=== PATIENT | male | born 1960 | race Caucasian/White ===

== ENCOUNTER 2018-01-14 22:21 | Emergency (ER) | payer BC, SELFPAY ==
[2018-01-14 22:21] VITALS: BP 156/85; PULSE 97; RESP 18; TEMP 37.7; O2SAT 99; BMI 35.3
--- NOTE | 2018-01-14 22:52 | ED.VISSUMM ---
- ER Visit Summary Date of Service: 01/14/18 Chief Complaint: Fever History of Present Illness: The patient is a 57 M with a fever for 3 days. As high as 102. Patient was recently treated for a dental infection. He is on his second round of amoxicillin and he had a root canal 3 days ago. He denies any pain at the site of his root canal. He is not sure if his fevers are related to the procedure or not. He says he has been feeling extremely weak for 3-4 weeks. He reports fevers, chills, generalized weakness, face/sinus/bilateral ear pains, cough, chest pain, neck pains, and disorientation/confusion. I asked him to elaborate, and he said his disorientation and confusion is more like a mental fogginess. He has not forgotten who he is, where he has, or the date. He has not had a change in mental status. Symptoms are worse with exposure to light. He never had these symptoms before. He has a history of atrial fibrillation and kidney stones. Also history of cholecystectomy. Occasional drinker, beer. Non-smoker. No drugs. No history of cancer or immunocompromise. Physical Examination: Blood pressure 156/85. Borderline temp of 99.9 and borderline heart rate of 97. Respiratory rate 18 and pulse ox 99% on room air. Patient lying supine. Appears comfortable. Smiling, calm, and cooperative. Moving neck freely. Negative Kernig and Brudzinski signs. Head and neck shows normal inspection. HEENT exam unremarkable. No palpable tenderness or masses. No lymphadenopathy. Heart regular rate and rhythm. Lungs clear throughout. Abdomen soft and nontender. Normal bowel sounds. Skin appears normal in color without rash. Good range of motion through his joints. Test Results: EKG, labs, urinalysis, CT brain, and chest x-ray pending. Emergency Department Course and Treatment: Patient treated with IV fluids and Tylenol while awaiting results. I am not sure if his symptoms are directly or indirectly related to his root canal or prior dental pain or prior extreme weakness. Patient has multiple symptoms, but a fairly reassuring exam. I did consider infectious pathology, PRODUCTION SUPPORT DEVELOPER pathology, head and neck pathology, cardiac pathology, and respiratory pathologies primarily. EKG showed a sinus rhythm at a rate of 80. No sign of acute ischemia or infarction pattern. Troponin was normal. Chest x-ray showed nothing acute. CT brain showed no acute process. Patient was treated with Benadryl, Compazine, and Toradol for headache. He also received Tylenol for low-grade fevers prior to laboratory studies resulting. Labs showed a normal white count. Hemoglobin 12.7 and platelets 138. I do not have old values for comparison. Creatinine 1.31. ALT 194 and AST 165. Lipase and coags normal. Blood cultures pending. Influenza test negative. Patient presents with a fever and influenza type symptoms, headache, body ache, cough. His workup was fairly unremarkable. He is slightly anemic and thrombocytopenic, but nothing remarkable. His liver enzymes were elevated. He said he had a history of jaundice years ago and he thinks this was from infectious mononucleosis. He drinks up to 4-5 beers per day but he has no history of hepatitis, or pancreatitis. He had a cholecystectomy previously. No history of IV drug abuse, blood transfusions, or other risk factors for viral hepatitis. I am not sure if he has some type of viral or other illness that is causing his elevated liver enzymes or if he has a hepatitis that is causing his other symptoms. He is not having significant pain or other GI symptoms which would require hospitalization or inpatient workup. I did advise that we can observe him in the hospital, but he would like to follow-up as an outpatient. I recommended that he returns if he has new or worsening symptoms. I also did consider PRODUCTION SUPPORT DEVELOPER infection such as meningitis. I do not believe that he needs an LP. We discussed risks and potential benefits. The patient agreed. All questions were answered. He will be discharged with his . He will call his PCP on Tuesday to arrange outpatient follow-up. If he has new or worsening symptoms, he will return right away. Treatment Plan: As above Disposition: Discharge Impression: 1. Febrile illness 2. Hepatitis 3. Anemia 4. Thrombocytopenia This note was generated with [employer] dictation software. It may contain incorrect words, spelling, and punctuation that were not noted in review of the chart prior to signing ED Disposition - Plan for ED Patient: Chief Complaint: General Illness Referrals: Cristal Curtis [Primary Care Provider] -
--- NOTE | 2018-01-14 22:58 | ED.DCSUM_ITS ---
- ER Visit Summary Date of Service: 01/14/18 Chief Complaint: Fever History of Present Illness: The patient is a 57 M with a fever for 3 days. As high as 102. Patient was recently treated for a dental infection. He is on his second round of amoxicillin and he had a root canal 3 days ago. He denies any pain at the site of his root canal. He is not sure if his fevers are related to the procedure or not. He says he has been feeling extremely weak for 3-4 weeks. He reports fevers, chills, generalized weakness, face/sinus/ bilateral ear pains, cough, chest pain, neck pains, and disorientation/ confusion. I asked him to elaborate, and he said his disorientation and confusion is more like a mental fogginess. He has not forgotten who he is, where he has, or the date. He has not had a change in mental status. Symptoms are worse with exposure to light. He never had these symptoms before. He has a history of atrial fibrillation and kidney stones. Also history of cholecystectomy. Occasional drinker, beer. Non-smoker. No drugs. No history of cancer or immunocompromise. Physical Examination: Blood pressure 156/85. Borderline temp of 99.9 and borderline heart rate of 97. Respiratory rate 18 and pulse ox 99% on room air. Patient lying supine. Appears comfortable. Smiling, calm, and cooperative. Moving neck freely. Negative Kernig and Brudzinski signs. Head and neck shows normal inspection. HEENT exam unremarkable. No palpable tenderness or masses. No lymphadenopathy. Heart regular rate and rhythm. Lungs clear throughout. Abdomen soft and nontender. Normal bowel sounds. Skin appears normal in color without rash. Good range of motion through his joints. Test Results: EKG, labs, urinalysis, CT brain, and chest x-ray pending. Emergency Department Course and Treatment: Patient treated with IV fluids and Tylenol while awaiting results. I am not sure if his symptoms are directly or indirectly related to his root canal or prior dental pain or prior extreme weakness. Patient has multiple symptoms, but a fairly reassuring exam. I did consider infectious pathology, FIRE CAPTAIN pathology, head and neck pathology, cardiac pathology, and respiratory pathologies primarily. EKG showed a sinus rhythm at a rate of 80. No sign of acute ischemia or infarction pattern. Troponin was normal. Chest x-ray showed nothing acute. CT brain showed no acute process. Patient was treated with Benadryl, Compazine , and Toradol for headache. He also received Tylenol for low-grade fevers prior to laboratory studies resulting. Labs showed a normal white count. Hemoglobin 12.7 and platelets 138. I do not have old values for comparison. Creatinine 1.31. ALT 194 and AST 165. Lipase and coags normal. Blood cultures pending. Influenza test negative. Patient presents with a fever and influenza type symptoms, headache, body ache, cough. His workup was fairly unremarkable. He is slightly anemic and thrombocytopenic, but nothing remarkable. His liver enzymes were elevated. He said he had a history of jaundice years ago and he thinks this was from infectious mononucleosis. He drinks up to 4-5 beers per day but he has no history of hepatitis, or pancreatitis. He had a cholecystectomy previously. No history of IV drug abuse, blood transfusions, or other risk factors for viral hepatitis. I am not sure if he has some type of viral or other illness that is causing his elevated liver enzymes or if he has a hepatitis that is causing his other symptoms. He is not having significant pain or other GI symptoms which would require hospitalization or inpatient workup. I did advise that we can observe him in the hospital, but he would like to follow-up as an outpatient. I recommended that he returns if he has new or worsening symptoms. I also did consider FIRE CAPTAIN infection such as meningitis. I do not believe that he needs an LP. We discussed risks and potential benefits. The patient agreed. All questions were answered. He will be discharged with his . He will call his PCP on Tuesday to arrange outpatient follow-up. If he has new or worsening symptoms, he will return right away. Treatment Plan: As above Disposition: Discharge Impression: 1. Febrile illness 2. Hepatitis 3. Anemia 4. Thrombocytopenia This note was generated with [employer] dictation software. It may contain incorrect words, spelling, and punctuation that were not noted in review of the chart prior to signing ED Disposition - Plan for ED Patient: Chief Complaint: General Illness Referrals: Cristal Curtis [Primary Care Provider] -
[2018-01-14] MEDS: Acetaminophen 500 MG Tablet 1000 MG PO (22:59)
[2018-01-14] MEDS: 0.9% Normal Saline 1,000 ML 1000 ML IV (22:59)
[2018-01-14 23:15] LABS: ALB/GLOB Ratio 0.9 RATIO (0.9-2.4); AST(SGOT) 165 U/L (15-37); Alanine Aminotransfer ALT/SGPT 194 U/L (16-61); Albumin, Serum 3.7 g/dL (3.2-5.0); Alkaline Phosphatase 84 U/L (45-117); Anion Gap 7 (5-15); BUN 15 mg/dL (7-18); BUN/Creat Ratio 11.5 RATIO (10-20); Calcium,Total 8.6 mg/dL (8.5-10.1); Chloride 103 mmol/L (98-107); Creatinine, Serum 1.31 mg/dL (0.70-1.30); EST Glomerular Filtration Rate 60 mL/min (>60); Est Glom Filt Rate - Afr Amer 73 mL/min (>60); Estimated Creatinine Clearance 74.08 ml/min; Globulin 3.9 g/dL (2.2-4.2); Glucose 105 mg/dL (74-106); Potassium 3.7 mmol/L (3.5-5.1); Protein, Total 7.6 g/dL (6.4-8.2); Sodium Level 138 mmol/L (136-145)
[2018-01-14 23:16] LABS: Absolute Lymphocyte Count 0.55 X10^3/ul (0.83-4.51); Absolute Neutrophil Count 3.7 X10^3/uL (2.0-7.7); Basophil# 0.02 X10^3/uL; Basophil% 0.4 % (0-1); Eosinophil# 0.06 X10^3/uL; Eosinophils% 1.2 % (0-5); Hematocrit 36.6 % (40-54); Hemoglobin 12.7 g/dl (13.0-16.5); Lymphocyte # 0.55 X10^3/ul (4.0); Lymphocyte % 10.8 % (19-41); Mean Corp Hgb Conc 34.7 g/gl (32-36); Mean Corpuscular Hgb 31.3 pg (27.0-32.0); Mean Corpuscular Volume 90.1 fL (80-94); Mean Platelet Vol. 10.2 fl (6.2-12.0); Monocyte# 0.72 X10^3/uL; Monocyte% 14.1 % (0-10); Neutrophil # 3.71 X10^3/uL (2.7-7.7); Neutrophil % 72.9 % (47-70); Platelet Count 138 K/mm3 (150-450); RBC Distribution Width CV 11.9 % (11.6-14.6); RBC Distribution Width SD 38.2 fl (35.1-43.9); Red Blood Count 4.06 M/mm3 (4.6-6.2); White Blood Count 5.1 K/mm3 (4.4-11.0)
[2018-01-14 23:17] LABS: Differential Indicated SCAN CRITERIA MET; POSITIVE COUNT NO; POSITIVE DIFFERENTIAL YES; POSITIVE MORPHOLOGY NO
[2018-01-14] MEDS: DiphenhydrAMINE 50 MG/ML Syringe 25 MG IV (23:49)
[2018-01-14] MEDS: proCHLORPERazine 10 MG/2 ML Vial IV (23:50)
[2018-01-14 23:52] VITALS: BP 116/67; PULSE 74; RESP 16; O2SAT 95
[2018-01-14 23:54] LABS: Differential Comment SCANNED
[2018-01-14] MEDS: Ketorolac 30 MG/ML Syringe IV (23:56)
[2018-01-15 00:22] LABS: Lipase 164 U/L (73-393); Prothrombin Time (Protime)PT. 13.3 SECONDS (11.7-14.9)
[2018-01-15 00:23] LABS: Partial Thromboplast Time 29.2 Seconds (24.1-36.2)
--- NOTE | 2018-01-15 01:06 | ED.DEP ---
ED Disposition - Plan for ED Patient: Chief Complaint: General Illness Instructions: ED Fever Unconf Cause, Common Tests for Liver Disease Referrals: Cristal Curtis [Primary Care Provider] - As soon as possible Additional Instructions: Return right away for new or worsening issues
[2018-01-15 01:23] VITALS: RESP 17
[2018-01-15 01:26] LABS: Bacteria 0 SEEN /hpf (None Seen); Mucous, Urine 0 SEEN /hpf (<or=2+); Red Blood Cells-Urine 0 SEEN /hpf (0-5); Squamous Epithelial Cells - UA 0 SEEN /hpf (0-5); White Blood Cells 0 SEEN /hpf (0-5)
[2018-01-15 01:28] LABS: Color, Urine Yellow (Yellow); Glucose, Dipstick Normal (Normal); Ketone-Dipstick Negative (Negative); Leukocyte Esterase-Dipstick Negative /ul (Negative); Nitrite-Dipstick Negative (Negative); Occult Blood-Urine Negative /ul (Negative); Protein-Dipstick Negative (Negative); Urine Bilirubin Dipstick Negative (Negative); Urine Clarity Clear (Clear); Urine Urobilinogen 1 mg/dl (Normal)
== END 2018-01-15 01:25 | disposition home or self-care (01) ==
PROVIDERS: Emergency Provider Emergency Medicine; Family Provider Internal Medicine Infectious Disease; PCP Internal Medicine Infectious Disease
DX: R50.9 Fever, unspecified (principal); K75.9 Inflammatory liver disease, unspecified; D64.9 Anemia, unspecified; D69.6 Thrombocytopenia, unspecified; R41.9 Unspecified symptoms and signs involving cognitive functions and awareness; H92.03 Otalgia, bilateral; M54.2 Cervicalgia; R05 Cough; K21.9 Gastro-esophageal reflux disease without esophagitis; I10 Essential (primary) hypertension; I48.91 Unspecified atrial fibrillation; Z87.442 Personal history of urinary calculi; Z90.49 Acquired absence of other specified parts of digestive tract; Z79.899 Other long term (current) drug therapy
CPT/HCPCS: 70450; 71045; 80053; 81001; 83690; 84484; 85025; 85610; 85730; 87040; 87804; 93005; 96361; 96374; 96375; 99284; J7030; A4216

== ENCOUNTER → 2018-06-21 16:40 | Outpatient (CLI) | payer SELFPAY ==
[2018-06-21 18:14] LABS: Anion Gap 7 (5-15); BUN 20 mg/dL (7-18); BUN/Creat Ratio 16.7 RATIO (10-20); Calcium,Total 9.1 mg/dL (8.5-10.1); Chloride 106 mmol/L (98-107); EST Glomerular Filtration Rate 67 mL/min (>60); Est Glom Filt Rate - Afr Amer 81 mL/min (>60); Glucose 85 mg/dL (74-106); PSA,Total - Annual Screen 0.81 ng/mL (0.00-4.00); Potassium 4.1 mmol/L (3.5-5.1); Sodium Level 140 mmol/L (136-145); Thyroid Stim Hormone (TSH) 2.73 uIU/mL (0.358-3.74)
== END ==
PROVIDERS: Family Provider Family Medicine; PCP Family Medicine; Visit Provider Family Medicine
DX: Z00.00 Encounter for general adult medical examination without abnormal findings (principal); Z80.42 Family history of malignant neoplasm of prostate; F32.9 Major depressive disorder, single episode, unspecified
CPT/HCPCS: 36415; 80048; 84153; 84443; G0103

== ENCOUNTER 2018-12-03 21:28 | Emergency (ER) | payer OTHER, SELFPAY ==
[2018-12-03 21:29] VITALS: BP 161/91; PULSE 84; RESP 16; TEMP 37.1; O2SAT 99; BMI 35.6
--- NOTE | 2018-12-03 21:55 | EKG12_ITS ---
Test Reason : PALPS Blood Pressure : / mmHG Vent. Rate : 081 BPM Atrial Rate : 081 BPM P-R Int : 154 ms QRS Dur : 120 ms QT Int : 406 ms P-R-T Axes : 035 -33 030 degrees QTc Int : 471 ms Normal sinus rhythm Left axis deviation Non-specific intra-ventricular conduction delay Abnormal ECG Confirmed by CHARLIE HERMOSILLO, LAILA ([id number]), rewrite editor CHEMA PENA ([id number]) on 12/05/2018 1:53:28 PM Referred By: SILVERIO Confirmed By:LAILA GUERRA MD
[2018-12-03 22:14] LABS: Hematocrit 37.2 % (40-54); Mean Corp Hgb Conc 34.9 g/gl (32-36); Mean Corpuscular Hgb 30.8 pg (27.0-32.0); Mean Corpuscular Volume 88.2 fL (80-94); Mean Platelet Vol. 10.3 fl (6.2-12.0); Platelet Count 142 K/mm3 (150-450); RBC Distribution Width CV 12.6 % (11.6-14.6); RBC Distribution Width SD 39.9 fl (35.1-43.9); Red Blood Count 4.22 M/mm3 (4.6-6.2); White Blood Count 6.5 K/mm3 (4.4-11.0)
[2018-12-03 22:15] LABS: Scan Indicated on CBC? Y/N NO
[2018-12-03 22:43] LABS: Anion Gap 7 (5-15); BUN 16 mg/dL (7-18); BUN/Creat Ratio 13.1 RATIO (10-20); Calcium,Total 8.2 mg/dL (8.5-10.1); Chloride 107 mmol/L (98-107); Creatinine, Serum 1.22 mg/dL (0.70-1.30); EST Glomerular Filtration Rate 65 mL/min (>60); Est Glom Filt Rate - Afr Amer 79 mL/min (>60); Estimated Creatinine Clearance 76.41 ml/min; Glucose 129 mg/dL (74-106); Potassium 3.4 mmol/L (3.5-5.1); Sodium Level 139 mmol/L (136-145)
--- NOTE | 2018-12-03 23:08 | ED.VIS.GEN ---
History of Present Illness Chief Complaint: Palpitations Informant: Patient Onset: Today, Weeks Context: Sudden Onset Timing: Intermittent Quality: Palpitations fluttering the chest Location: Fluttering and discomfort chest Current Severity: - - Presently he has no symptoms Maximum Severity: Mild Worsened by: Nothing Relieved by: Nothing Associated Symptoms: Mild chest discomfort subxiphoid - Past Medical History (1) Paroxysmal atrial fibrillation Status: Acute (2) History of hypertension Status: Acute (3) History of high cholesterol Status: Acute Past Medical History - Allergies and Home Meds Allergies/Adverse Reactions: Allergies No Known Allergies Allergy (Verified 01/14/18 22:24) Primary Care Physician: Joanne Zheng MD [Primary Care Provider] - Prior records reviewed: Yes Surgical History: noncontributory Lives: Spouse/ Significant Other Smoking Status: Never smoker Drugs: None Review of Systems General: Denies: Chills, Fever, Sweats Eyes: Denies: Visual changes - bilaterally, Diplopia ENT: Denies: Bilateral ear pain, Rhinorrhea, Sore throat Cardiovascular: Reports: Palpitations, Heart racing. Denies: Chest pain Respiratory: Denies: Dyspnea, Cough, Dyspnea on exertion, Orthopnea, Paroxysmal nocturnal dyspnea Gastrointestinal: Denies: Abdominal pain, Nausea, Vomiting, Diarrhea, Melena, Hematochezia Genitourinary: Denies: Dysuria, Hematuria, Frequency Musculoskeletal: Denies: Back pain, Extremity Pain Skin: Denies: Rash, Wounds Neurological: Denies: Headache, Weakness, Numbness Endocrine: Denies: Heat intolerance, Cold intolerance Hematologic: Denies: Easy bruising, Easy bleeding Allergy: Denies: Uticaria, Swelling of the mouth Physical Exam Vital Signs/Narrative: Vital Signs Temp Pulse Resp BP Pulse Ox 12/03/18 21:29 98.8 F 84 16 161/91 H 99 Inital Vital Signs reviewed: Yes General: Well nourished, Well developed, No Acute Distress Head: Normocephalic, Atraumatic Eyes: Perrl, EOMI ENT: Moist mucous membranes, No rhinorrhea Neck: Supple, Nontender Cardiovascular: Regular rate, Regular rhythm, No murmurs, Normal S1, Normal S2 Respiratory: No distress, CTA bilaterally, Chest nontender Abdomen: Soft, Nontender, Nondistended, Normal bowel sounds Back: Nontender, Normal Inspection Extremities: Nontender, No edema Skin: Normal color, No rash Neurological: Alert, Oriented x3, Cranial nerves II-XII grossly intact, Normal Strength, Normal Sensation, Normal DTR Psychological: Normal affect, Normal Mood Diagnostic/Tx/Re-eval Laboratory Results 12/03/18 12/03/18 22:04 22:04 WBC 6.5 RBC 4.22 L Hgb 13.0 Hct 37.2 L MCV 88.2 MCH 30.8 MCHC 34.9 RDW 12.6 RDW Differential 39.9 Plt Count 142 L MPV 10.3 Sodium 139 Potassium 3.4 L Chloride 107 Carbon Dioxide 25.0 Anion Gap 7 BUN 16 Creatinine 1.22 Estim Creat Clear Calc 76.41 Est GFR (MDRD) Af Amer 79 Est GFR (MDRD) Non-Af 65 BUN/Creatinine Ratio 13.1 Glucose 129 H Calcium 8.2 L Troponin I < 0.015 - EKG Initial EKG Interpretation: Sinus Rhythm - Ventricular rate is 81. NE interval is 154 ms. QRS durations 120 ms. QT interval is 406 ms. [place] to the left. There is evidence of an intraventricular conduction delay, nonspecific. - Medical Decision Making Patient has a low chads score. Case discussed Dr. Lenz. He is to call office for follow-up. ED Disposition - Plan for ED Patient: Disposition: Home or Assisted Living Diagnosis: Paroxysmal atrial fibrillation Instructions: Atrial Fibrillation Referrals: Joanne Zheng MD [Primary Care Provider] - Russell Lizarraga MD [STAFF PHYSICIAN] - 3-5 Days Additional Instructions: Call Dr. Lizarraga's office in the morning to be seen later this week. Take an aspirin a day
[2018-12-03 23:17] VITALS: BP 147/77; PULSE 80; RESP 20; O2SAT 95
== END 2018-12-03 23:20 | disposition home or self-care (01) ==
PROVIDERS: Emergency Provider Emergency Medicine; Family Provider Family Medicine; PCP Family Medicine
DX: I48.0 Paroxysmal atrial fibrillation (principal); I10 Essential (primary) hypertension; Z79.899 Other long term (current) drug therapy
CPT/HCPCS: 80048; 84484; 85027; 93005; 99284; A4216

== ENCOUNTER → 2019-01-10 | Outpatient (CLI) | payer OTHER, SELFPAY ==
[2018-12-13 11:30] VITALS: BMI 35.2
--- NOTE | 2019-01-10 07:01 | ECHOCS_ITS ---
Reason For Study: AFIB/FLUTTER Procedure This was a 2D Doppler, Color Flow transthoracic echocardiogram. The study was technically difficult. Due to body habitus. Contrast injection was performed. Exam performed in department. Left Ventricle Normal LV size. Left ventricular systolic function is normal. The estimated ejection fraction is 55 %. No evidence for diastolic dysfunction. No regional wall motion abnormalities noted. Right Ventricle Normal RV size. Normal systolic function. Atria Normal left atrium. Normal right atrium. Mitral Valve Normal mitral valve. Tricuspid Valve Normal tricuspid valve. Mild (1+) tricuspid valve insufficiency. Pulmonary artery systolic pressure is 30 mmHg. Aortic Valve Normal aortic valve. Pulmonic Valve Normal pulmonic valve. Great Vessels Normal aortic root. The pulmonary artery is normal size. Normal inferior vena cava. Pericardium/Pleural No pericardial effusion. Medication Diluted definity 4.0ml given slow IV push to enhance endocardial definition. MMode/2D Measurements & Calculations LVIDd: 6.2 cm IVSd: 0.97 cm Ao root diam: 4.2 cm LVIDs: 3.9 cm LVPWd: 1.1 cm RVDd: 3.9 cm FS: 36.9 % LAV(MOD-bp): 57.1 ml LA A4 area: 16.3 cm2 LA dimension(2D): 4.6 cm LAV(MOD-bp) Indexed: 23.5 ml/m2 LAV(MOD-sp2): 64.4 ml LAV(MOD-sp4): 44.1 ml RA A4 area: 19.9 cm2 Time Measurements MV dec time: 0.19 sec Doppler Measurements & Calculations MV E max anupam: 72.5 cm/sec Lat Peak E' Anupam: 8.5 cm/sec Med Peak E' Anupam: 7.3 cm/sec MV A max anupam: 61.4 cm/sec E/E' lat: 8.5 E/E' med: 9.9 MV E/A: 1.2 Ao V2 max: 107.4 cm/sec LV V1 max: 92.0 cm/sec PA V2 max: 89.6 cm/sec Ao max P.6 mmHg LV V1 max P.4 mmHg TR max anupam: 255.9 cm/sec TR max P.3 mmHg Interpretation Summary Normal LV size. Left ventricular systolic function is normal. The estimated ejection fraction is 55 %. No evidence for diastolic dysfunction. Contrast injection was performed. Ordering Physician: Russell Lizarraga Referring Physician: Joanne Zheng Performed By: Alisson Corcoran, AJITCS, RVT
--- NOTE | 2019-01-10 12:23 | STRESSREP ---
Stress Test Report Exercise myocardial perfusion stress test. 58-year-old male with a history of coronary artery disease and hypertension. Stress protocol: Resting EKG demonstrates normal sinus rhythm with a rate of 75 beats minute normal intervals are noted resting blood pressures 136/82 mmHg. The patient exercised according to regular Tyrell protocol for total duration of 9 minutes maximum heart rate attained was 144 bpm which was 87% of maximum predicted heart rate and maximum workload was 10.1 metabolic equivalents. Patient maintained sinus rhythm throughout the recording. At rest there were no ST or T wave changes noted suggest ischemia. At peak exercise no ST or T wave changes were noted to suggest ischemia. The resting blood pressures 136/82 with a peak blood pressure of 158/76. Rate pressure product was 21,500. Myocardial perfusion protocol. 14.9 mCi of technetium 99m sestamibi was injected at rest. The patient exercised according to regular Tyrell protocol. At peak exercise 44.8 mCi of technetium 99m sestamibi was injected stress images were obtained stress and rest images were reconstructed and compared in the short axis vertical long horizontal long axis. Gated images were also obtained Perfusion SPECT analysis: Review of the stress images demonstrate normal uptake of tracer noted in all areas of the myocardium the resting images similar demonstrate normal uptake of tracer noted in all areas of the myocardium. No areas of reversibility are noted suggest ischemia no previous infarct is noted. Gated SPECT analysis: The gated ejection fraction is noted to be 59%. Conclusion: Exercise myocardial perfusion stress test with no evidence of ischemia at a high workload No arrhythmias noted. Preserved ejection fraction.
== END | disposition home or self-care (01) ==
LOC: CVS 07:00
PROVIDERS: Family Provider Family Medicine; PCP Family Medicine; Referring Provider Internal Medicine Cardiovascular Disease; Visit Provider Internal Medicine Cardiovascular Disease
DX: I48.0 Paroxysmal atrial fibrillation (principal)
CPT/HCPCS: 78452; 93017; 93306; A9500; Q9957; A4216; C8929

== ENCOUNTER → 2019-06-08 13:45 | Outpatient (CLI) | payer OTHER, SELFPAY ==
[2019-03-15 14:01] VITALS: BMI 36.8
[2019-06-08 16:01] LABS: Ferritin 279 ng/mL (26-388)
== END ==
PROVIDERS: PCP Family Medicine; Referring Provider Family Medicine; Visit Provider Internal Medicine Pulmonary Disease
DX: M79.606 Pain in leg, unspecified (principal)
CPT/HCPCS: 36415; 82728

== ENCOUNTER 2019-09-30 16:19 | Emergency (ER) | payer OTHER, SELFPAY ==
[2019-03-15 14:01] VITALS: BMI 36.8
[2019-09-30 16:20] VITALS: BP 161/105; PULSE 94; RESP 18; TEMP 36.6; O2SAT 99; BMI 37.8
--- NOTE | 2019-09-30 16:38 | EKG12_ITS ---
Test Reason : SOB Blood Pressure : / mmHG Vent. Rate : 079 BPM Atrial Rate : 079 BPM P-R Int : 164 ms QRS Dur : 124 ms QT Int : 386 ms P-R-T Axes : 028 -36 030 degrees QTc Int : 442 ms Normal sinus rhythm Left axis deviation Left ventricular hypertrophy with QRS widening Abnormal ECG Confirmed by CHARLIE HERMOSILLO, LAILA ([id number]), video tape editor MICHAEL CHOW ([id number]) on 10/01/2019 3:09:26 PM Referred By: KENZIE Confirmed By:LAILA GUERRA MD
[2019-09-30 16:53] VITALS: BP 143/82; PULSE 83; RESP 15; O2SAT 94; O2SAT 95
[2019-09-30 16:59] LABS: Absolute Lymphocyte Count 1.36 X10^3/uL (0.83-4.51); Absolute Neutrophil Count 4.8 X10^3/uL (2.0-7.7); Basophil# 0.06 X10^3/uL; Basophil% 0.9 % (0-1); Eosinophil# 0.21 X10^3/uL; Hematocrit 41.2 % (40-54); Hemoglobin 14.2 g/dL (13.0-16.5); Lymphocyte # 1.36 X10^3/ul (4.0); Lymphocyte % 19.5 % (19-41); Mean Corp Hgb Conc 34.5 g/dL (32-36); Mean Corpuscular Hgb 30.6 pg (27.0-32.0); Mean Corpuscular Volume 88.8 fL (80-94); Mean Platelet Vol. 9.9 fl (6.2-12.0); Monocyte# 0.43 X10^3/uL; Monocyte% 6.2 % (0-10); NRBC Flagged by Analyzer 0 % (0-5); Neutrophil # 4.77 X10^3/uL (2.7-7.7); Neutrophil % 68.5 % (47-70); Platelet Count 164 K/mm3 (150-450); RBC Distribution Width CV 11.8 % (11.6-14.6); RBC Distribution Width SD 37.4 fl (35.1-43.9); Red Blood Count 4.64 M/mm3 (4.6-6.2)
[2019-09-30] MEDS: 0.9% Normal Saline 1,000 ML 150 ML IV (17:05)
--- NOTE | 2019-09-30 17:10 | RAD_ITS ---
STUDY: X-RAY CHEST REASON FOR EXAM: Male, 58 years old. PT WITH SOB X WEEK, WORSENED TODAY, REPORTS CHILLS AND SORE THROAT. TECHNIQUE: Single AP portable view of the chest. COMPARISON: 09/14/2017. FINDINGS: The lungs are clear and expanded. There is no demonstrated pleural abnormality. Normal size heart. Normal mediastinum and anuel. Normal visualized pulmonary arteries. Normal visualized aortic arch and descending thoracic aorta. Normal visualized thoracic spine. Normal visualized ribs, clavicles, and shoulders. There is no demonstrated abnormality of the visualized soft tissue structures of the upper abdomen. RAD/Chest 1 View (Portable) IMPRESSION: Normal x-ray examination of the chest. Electronically Signed: Stephanie Maya MD at 17:36 EDT Tel , Service support ,
[2019-09-30 17:11] LABS: D-Dimer Quantitative (DVT/PE) 0.34 FEU/ug/m (0.27-0.49)
[2019-09-30 17:15] VITALS: BP 143/82; PULSE 81; RESP 14; TEMP 37.6; O2SAT 96
[2019-09-30 17:17] LABS: Anion Gap 8 (5-15); BUN 19 mg/dL (7-18); BUN/Creat Ratio 15.7 RATIO (10-20); Calcium,Total 9.5 mg/dL (8.5-10.1); Chloride 105 mmol/L (98-107); Creatinine, Serum 1.21 mg/dL (0.70-1.30); EST Glomerular Filtration Rate 66 mL/min (>60); Est Glom Filt Rate - Afr Amer 80 mL/min (>60); Estimated Creatinine Clearance 77.04 ml/min; Glucose 137 mg/dL (74-106); Potassium 3.5 mmol/L (3.5-5.1); Sodium Level 140 mmol/L (136-145)
[2019-09-30 17:42] LABS: BNP,B-Type NATRIURETIC PEPTIDE < 2.0 pg/mL (0-100)
[2019-09-30 18:15] VITALS: BP 129/76; PULSE 81; RESP 15; TEMP 36.7; O2SAT 93
[2019-09-30 18:24] LABS: Lactic Acid 1.5 mmol/L (0.4-1.9)
[2019-09-30 18:32] VITALS: O2SAT 94
--- NOTE | 2019-09-30 18:39 | ED.VISSUMM ---
- ER Visit Summary Date of Service: 09/30/19 Chief Complaint: Cough and shortness of breath History of Present Illness: The patient is a [address] Zheng and Dr. Lizarraga. He reports that he has a cough that began approximately 1 week ago. States it was nonproductive until this morning. He states that he is now coughing up clear/thin sputum. He denies any blood in his sputum. He reports he had a temperature to 99.7 degrees and chills. He reports that his throat feels scratchy. Patient reports he is had substernal chest pain for the past hour. Describes it a pressure that 6 out of 10 severity. Nothing makes this worse including exertion. Also nothing makes this better. He has had nausea without vomiting. He denies diaphoresis. Patient reports that he has severe shortness of breath that is worsened by walking. States it is mild currently. Patient lives with his who was ill with a GI bug 2 to 3 weeks ago. He denies any exposure to sick contacts. He has been staying at home. Patient has a history of atrial fibrillation and is on Eliquis. Physical Examination: Vitals: Stable. Afebrile. General: Well-nourished and well-developed. Head: Normocephalic atraumatic. Neck: Supple, no lymphadenopathy. No JVD. Nontender. Cardiovascular: Regular rate and rhythm. No murmurs. Respiratory: Tachypnea. Clear to auscultation bilaterally. Abdominal: Soft, nontender, nondistended, normal bowel sounds. No guarding, rebound, or peritoneal signs. Back: Nontender. Extremities: Nontender, no edema. Skin: Normal color, no rash. Neurologic: Alert and oriented ?3. Cranial nerves II through XII are intact. Normal strength and sensation. Psych: Anxious. Test Results: EKG is sinus at 79 with nonspecific intraventricular conduction delay. Unchanged from November 2018. Troponin is negative. D-dimer is negative. Lactic acid is 1.5. Respiratory panel is negative. Chem-7 shows a BUN of 19 and glucose 137. CBC shows immature granulocytes 1.9%. Clinical Impression(s) from Imaging Studies Chest X-Ray 09/30/19 17:10 IMPRESSION: Normal x-ray examination of the chest. Electronically Signed: Stephanie Maya MD at 17:36 EDT Tel , Service support , Emergency Department Course and Treatment: Patient is ambulatory pulse ox is 93% on room air. I had a prolonged discussion with him that I suspect that he does have COVID-19 infection. However, he does not meet criteria for hospitalization or testing for this. Treatment Plan: Patient will be discharged with instructions to use a pulse ox at home. Follow-up his primary care physician in 2 weeks if not improving. Return to the emergency department for any worsening symptoms. Disposition: To home in improved and stable condition. Impression: 1. URI. 2. Suspected COVID-19 infection. This note was generated with [employer] dictation software. It may contain incorrect words, spelling, and punctuation that were not noted in review of the chart prior to signing ED Disposition - Plan for ED Patient: Disposition: Home or Assisted Living Instructions: ED Upper Resp Infec No Abx Tx Referrals: Joanne Zheng MD [Primary Care Provider] - 10-14 Days if not better
[2019-09-30 18:49] VITALS: BP 138/77; PULSE 84; RESP 16; O2SAT 97
== END 2019-09-30 19:10 | disposition home or self-care (01) ==
LOC: ED 17:25
PROVIDERS: Emergency Provider Emergency Medicine; PCP Family Medicine
DX: Z03.818 Encounter for observation for suspected exposure to other biological agents ruled out (principal); J06.9 Acute upper respiratory infection, unspecified; I10 Essential (primary) hypertension; I48.91 Unspecified atrial fibrillation; Z79.01 Long term (current) use of anticoagulants; Z79.899 Other long term (current) drug therapy
CPT/HCPCS: 71045; 80048; 83605; 83880; 84484; 85025; 85379; 87040; 87633; 93005; 96360; 96361; 99284; J7030; A4216

== ENCOUNTER → 2019-10-08 12:28 | Outpatient (CLI) | payer OTHER, SELFPAY ==
[2019-09-30 16:20] VITALS: BMI 37.8
--- NOTE | 2019-10-08 12:32 | RAD_ITS ---
STUDY: X-RAY CHEST REASON FOR EXAM: Male, 58 years old. CHEST CONGESTION, DYSPNEA -- WAS BEING TREATED WITH A Z-PACK, SYMPTOMS HAVE RETURNED TECHNIQUE: PA and lateral views of the chest. COMPARISON: Portal AP upright chest x-ray September 30, 2019. FINDINGS: The lungs are clear and expanded. There is no demonstrated pleural abnormality. Normal size heart. Normal mediastinum and anuel. Normal visualized pulmonary arteries. Normal visualized aortic arch and descending thoracic aorta. There are stable multilevel degenerative changes of the visualized thoracic spine. There is slight anterior wedging of the T12 vertebra, likely chronic, and is stable slight lower thoracic levoscoliosis. Normal visualized ribs, clavicles, and shoulders. There is no demonstrated abnormality of the visualized soft tissue structures of the upper abdomen. RAD/Chest PA and Lateral IMPRESSION: No acute cardiopulmonary disease. Electronically Signed: Grant Bennett MD at 12:47 EDT , Service support ,
[2019-10-08 14:52] LABS: Absolute Lymphocyte Count 1.13 X10^3/uL (0.83-4.51); Absolute Neutrophil Count 4.3 X10^3/uL (2.0-7.7); Basophil# 0.05 X10^3/uL; Basophil% 0.8 % (0-1); Eosinophil# 0.25 X10^3/uL; Eosinophils% 3.9 % (0-5); Hematocrit 37.5 % (40-54); Hemoglobin 12.9 g/dL (13.0-16.5); Lymphocyte # 1.13 X10^3/ul (4.0); Lymphocyte % 17.6 % (19-41); Mean Corp Hgb Conc 34.4 g/dL (32-36); Mean Corpuscular Volume 90.1 fL (80-94); Mean Platelet Vol. 10.6 fl (6.2-12.0); Monocyte# 0.62 X10^3/uL; Monocyte% 9.7 % (0-10); NRBC Flagged by Analyzer 0 % (0-5); Neutrophil # 4.32 X10^3/uL (2.7-7.7); Neutrophil % 67.2 % (47-70); Platelet Count 176 K/mm3 (150-450); RBC Distribution Width CV 11.7 % (11.6-14.6); Red Blood Count 4.16 M/mm3 (4.6-6.2); White Blood Count 6.4 K/mm3 (4.4-11.0)
[2019-10-11 14:29] LABS: B. pertussis IgA < 1.0 index (0.0-0.9); B. pertussis IgG < 0.95 index (0.00-0.94); B. pertussis IgM < 1.0 index (0.0-0.9); SAR-COV-2 IGG ANTIBODY Negative (Negative); SAR-COV-2 IGM ANTIBODY Negative (Negative)
== END ==
PROVIDERS: PCP Family Medicine; Referring Provider Family Medicine; Visit Provider Family Medicine
DX: R68.89 Other general symptoms and signs (principal)
CPT/HCPCS: 71046; 85025; 86769; G2023

== ENCOUNTER → 2020-03-18 14:18 | Outpatient (CLI) | payer OTHER, SELFPAY ==
[2020-03-04 13:04] VITALS: BMI 36.8
[2020-03-18 17:56] LABS: Absolute Lymphocyte Count 0.98 X10^3/uL (0.83-4.51); Absolute Neutrophil Count 4.7 X10^3/uL (2.0-7.7); Basophil# 0.04 X10^3/uL; Basophil% 0.6 % (0-1); Eosinophil# 0.18 X10^3/uL; Eosinophils% 2.8 % (0-5); Hematocrit 37.9 % (40-54); Hemoglobin 12.3 g/dL (13.0-16.5); Lymphocyte # 0.98 X10^3/ul (4.0); Lymphocyte % 15.5 % (19-41); Mean Corp Hgb Conc 32.5 g/dL (32-36); Mean Corpuscular Hgb 29.9 pg (27.0-32.0); Mean Corpuscular Volume 92.2 fL (80-94); Mean Platelet Vol. 10.9 fl (6.2-12.0); Monocyte# 0.46 X10^3/uL; Monocyte% 7.3 % (0-10); NRBC Flagged by Analyzer 0 % (0-5); Neutrophil # 4.65 X10^3/uL (2.7-7.7); Neutrophil % 73.3 % (47-70); Platelet Count 161 K/mm3 (150-450); RBC Distribution Width CV 11.9 % (11.6-14.6); RBC Distribution Width SD 40.5 fl (35.1-43.9); Red Blood Count 4.11 M/mm3 (4.6-6.2); White Blood Count 6.3 K/mm3 (4.4-11.0)
[2020-03-18 18:08] LABS: Erythrocyte Sedimentation Rate 4 mm/hr (0-20)
[2020-03-18 18:26] LABS: ALB/GLOB Ratio 1.1 RATIO (0.9-2.4); AST(SGOT) 19 U/L (15-37); Alanine Aminotransfer ALT/SGPT 33 U/L (16-61); Albumin, Serum 3.9 g/dL (3.2-5.0); Alkaline Phosphatase 68 U/L (45-117); Anion Gap 7 (5-15); BUN 20 mg/dL (7-18); BUN/Creat Ratio 16.1 RATIO (10-20); CPK Total, Creatine Kinase 174 U/L (39-308); CRP < 2.90 mg/L (0.0-3.0); Calcium,Total 8.6 mg/dL (8.5-10.1); Chloride 105 mmol/L (98-107); Creatinine, Serum 1.24 mg/dL (0.70-1.30); EST Glomerular Filtration Rate 64 mL/min (>60); Est Glom Filt Rate - Afr Amer 77 mL/min (>60); Globulin 3.4 g/dL (2.2-4.2); Glucose 104 mg/dL (74-106); Potassium 3.8 mmol/L (3.5-5.1); Protein, Total 7.3 g/dL (6.4-8.2); Sodium Level 138 mmol/L (136-145); Thyroid Stim Hormone (TSH) 1.79 uIU/mL (0.358-3.74)
[2020-03-20 16:08] LABS: PROEL- A/G Ratio 1.4 (0.7-1.7); PROEL- Albumin 3.8 g/dL (2.9-4.4); PROEL- Alpha-1 Globulin 0.2 g/dL (0.0-0.4); PROEL- Alpha-2 Globulin 0.7 g/dL (0.4-1.0); PROEL- Gamma Globulin 0.9 g/dL (0.4-1.8); PROEL- Globulin, Total 2.8 g/dL (2.2-3.9); PROEL- TOTAL PROTEIN 6.6 g/dL (6.0-8.5)
== END ==
PROVIDERS: PCP Family Medicine; Referring Provider Family Medicine; Visit Provider Family Medicine
DX: M62.81 Muscle weakness (generalized) (principal); R53.83 Other fatigue
CPT/HCPCS: 36415; 80053; 82550; 84165; 84443; 85025; 85652; 86140

== ENCOUNTER → 2020-09-02 08:15 | Outpatient (CLI) | payer OTHER, SELFPAY ==
[2020-03-04 13:04] VITALS: BMI 36.8
[2020-09-02 09:13] LABS: Anion Gap 7 (5-15); BUN 24 mg/dL (7-18); BUN/Creat Ratio 18.8 RATIO (10-20); Calcium,Total 9.2 mg/dL (8.5-10.1); Chloride 102 mmol/L (98-107); Creatinine, Serum 1.28 mg/dL (0.70-1.30); EST Glomerular Filtration Rate 61 mL/min (>60); Est Glom Filt Rate - Afr Amer 74 mL/min (>60); Glucose 108 mg/dL (74-106); Potassium 3.7 mmol/L (3.5-5.1); Sodium Level 137 mmol/L (136-145)
== END ==
PROVIDERS: PCP Family Medicine; Referring Provider Physician Assistant Medical; Visit Provider Physician Assistant Medical
DX: I10 Essential (primary) hypertension (principal)
CPT/HCPCS: 36415; 80048

== ENCOUNTER 2021-08-18 12:59 | Emergency (ER) | payer OTHER, SELFPAY ==
[2021-08-18 13:00] VITALS: BP 153/92; PULSE 82; RESP 16; TEMP 36.6; O2SAT 99; BMI 36.3
--- NOTE | 2021-08-18 13:47 | EDS_ITS ---
HPI History of Present Illness Chief Complaint: Upper Extremity Injury Informant: patient Onset/Context/Timing Onset: Today Context: Sudden Onset Timing: Continuous Current Severity: Mild Maximum Severity: Mild Associated Symptoms Associated Symptoms: Negative for Parasthesia, Weakness and Loss of Funtion Narrative Narrative: 60-year-old male [id number]. History of hypertension and A. fib. He is on no anticoagulation other than aspirin. Patient works here in the hospital. Today said he was in a tight space he may have bumped his elbow but he does not remember any specific significant trauma. Said it has swollen up over the last 1 to 2 hours. He has never had this before is never had a bursitis before. He denies any recent illness other than a mild URI. Prior similar symptoms: No Recent Illness/Hospitalization: No PFSH PFS Medical History Depression Essential (primary) hypertension Hyperlipidemia Obesity Paroxysmal atrial fibrillation Home Medications loratadine 10 mg tablet 10 mg PO DAILY 12/11/18 [History Last Taken 09/30/19] omeprazole 20 mg capsule,delayed release 20 mg PO DAILY 12/11/18 [History Last Taken 09/30/19] aspirin 81 mg tablet,delayed release 81 mg PO DAILY 12/13/18 [History Last Taken 09/30/19] albuterol sulfate 2 puff INHALATION Q4H PRN PRN 09/30/19 [History Last Taken 09/30/19] buspirone 15 mg PO BID 09/30/19 [History Last Taken 09/30/19] trazodone 100 mg tablet 100 mg PO DAILY PRN 03/04/20 [History Last Taken Unknown] bupropion HCl 150 mg tablet,12 hr sustained-release 150 mg PO BID 03/27/20 [History Last Taken Unknown] amlodipine 5 mg tablet 5 mg PO DAILY #30 tablet 09/09/20 [Rx Last Taken Unknown] clonazepam 0.5 mg tablet 1 mg PO QHS PRN tab 10/30/20 [History Last Taken Unknown] flecainide 100 mg tablet 100 mg PO Q12H #180 tab 02/09/21 [Rx Last Taken Unknown] hydrochlorothiazide 25 mg tablet 25 mg PO DAILY #90 tablet 06/09/21 [Rx Last Taken Unknown] losartan 100 mg tablet 100 mg PO DAILY #90 tablet 07/27/21 [Rx Last Taken Unknown] metoprolol succinate 25 mg PO BID 08/18/21 [History Last Taken Unknown] ropinirole 1 mg PO QHS 08/18/21 [History Last Taken Unknown] Allergy/AdvReac Type Severity Reaction Status Date / Time lisinopril AdvReac cough Verified 08/18/21 13:02 Family History Other Breast cancer Colon cancer Heart disease Surgical History History of left heart catheterization (12/07/13) Social History Smoking Status: Never smoker ROS ROS ED ROS Narrative Recent URI. Review of Systems ROS Unobtainable: Denies due to encephalopathy Constitutional Constitutional ED: Denies fever(s) Eyes Eyes: Denies change in vision ENT ENT ED: Reports rhinorrhea; Denies ear pain Cardiovascular Cardiovascular: Denies chest pain Respiratory/Chest Respiratory/Chest: Reports cough; Denies dyspnea or sputum Gastrointestinal Gastrointestinal: Denies abdominal pain, diarrhea, nausea or vomiting Genitourinary Genitourinary ED: Denies dysuria Musculoskeletal Musculoskeletal: Denies myalgias Integumentary Denies rash Neurologic Neurologic: Denies headache(s) Psychiatric Psychiatric: Denies depression Endocrine Endocrinology: Denies polyuria Hematologic/Lymphatic Hematologic/Lymphatic: Denies easy bruising Allergic/Immunologic Allergic/Immunologic ED: Denies urticaria EXAM Physical Exam Narrative Exam Narrative: Middle-age male. No acute distress. Vital signs stable afebrile. Exam normal except right elbow has an obvious olecranon bursitis. There is no redness. No signs of cellulitis. This does not appear to be septic. He has full flexion-extension of the right elbow. There is no bony deformity. He has normal outpatient case manager strength. Right hand is neurovascularly intact. Const Vital Signs: 08/18/21 13:00 Temperature 97.9 F Temperature Source Temporal Pulse Rate 82 Respiratory Rate 16 Blood Pressure 153/92 H Blood Pressure Mean 112 Pulse Ox 99 Oxygen Delivery Method Room Air Positive well nourished and well developed; Negative for cachectic, contractures or unkempt General Appearance ED: well developed and NAD; Negative for unkempt, cachectic, contractures, cyanotic or diaphoretic Nutritional Appearance: Negative for cachectic HEENT Reports moist mucous membranes normocephalic and atraumatic; Negative for trauma or tenderness Eyes PERRL and EOMs intact bilaterally Neck full ROM and supple General: Negative for tenderness Chest Wall inspection of chest normal and palpation of chest normal Resp normal respiratory effort and clear to auscultation bilaterally Auscultation: Negative for rales, rhonchi or wheezes Cardio regular rate, regular rhythm, S1 normal heart sound, S2 normal heart sound and no murmurs GI non-tender, non-distended and no masses Auscultation: normoactive bowel sounds Palpation: soft; Negative for tender or guarding Back/Spine no CVA tenderness General Back: Negative for CVA tenderness Cervical Spine: Negative for cervical spine tenderness Thoracic Spine / Upper Back: Negative for thoracic spinal tenderness Extremity normal to inspection and full ROM Extremity Narrative: Except right elbow has a posterior olecranon bursitis. It does not appear to be's septic. There is no signs of infection. No redness. No cellulitis. Normal range of motion with full flexion-extension the elbow. General Extremety ED: Negative for edema General Extremity: Negative for edema Neuro oriented x3, moves all extremities and no focal motor deficits Sensorium / Orientation: alert, oriented to person, oriented to place and oriented to time; Negative for orientation impaired, lethargic or stuporous Motor Exam: strength 5/5 throughout Psych mental status grossly normal Appearance: Negative for unkempt Mood & Affect: Negative for depressed or tearful Skin Lesions: no lesions Rashes: no rashes Trauma: no lacerations or abrasions; Negative for abrasion or laceration MDM MDM MDM Narrative Medical decision making narrative: 15-year-old male has olecranon bursitis of his right elbow I suspect is from trauma. There is no signs of infection. Patient I discussed options. He would like to have it drained. Let will be applied to the area. It will be cleaned with alcohol swabs. I will drain it using a 21-gauge needle. Procedures Other Procedures Procedure(s): Right elbow olecranon bursitis aspiration. Let to the area. Cleaned the area with alcohol swabs. Initially to an 21-gauge needle and got no fluid out. I then aspirated with an 18-gauge needle.a very small amount of blood. I suspect this is a traumatic bursitis with clotted blood in the bursa. Again there is no signs of infection. Discussed with patient. Discharge Plan Triage Chief Complaint: Upper Extremity Injury ED Provider: Dilip Osullivan Dx/Rx/DC Orders Clinical Impression: Olecranon bursitis, History of atrial fibrillation Instructions: ED Bursitis Elbow Olecranon Prescriptions: No Action aspirin [Adult Aspirin Regimen] 81 mg tablet,delayed release (DR/EC) 81 mg PO DAILY RF: 0 omeprazole 20 mg capsule,delayed release(DR/EC) 20 mg PO DAILY RF: 0 loratadine [Allergy Relief (loratadine)] 10 mg tablet 10 mg PO DAILY RF: 0 clonazepam 0.5 mg tablet 1 mg PO QHS PRN (Reason: Anxiety) RF: 0 trazodone 100 mg tablet 100 mg PO DAILY PRN (Reason: insomnia) RF: 0 bupropion HCl 150 mg tablet sustained-release 12 hr 150 mg PO BID RF: 0 albuterol sulfate 1 INHALER inhaler 2 puff inhalation Q4H PRN PRN (Reason: Wheezing) RF: 0 buspirone 15 MG tablet 15 mg PO BID RF: 0 ropinirole 0.5 mg Tablet 1 mg PO QHS RF: 0 metoprolol succinate 25 mg tablet extended release 24 hr 25 mg PO BID RF: 0 amlodipine 5 mg tablet 5 mg PO DAILY Qty: 30 RF: 11 flecainide 100 mg tablet 100 mg PO Q12H Qty: 180 RF: 3 hydrochlorothiazide 25 mg tablet 25 mg PO DAILY Qty: 90 RF: 3 losartan 100 mg tablet 100 mg PO DAILY Qty: 90 RF: 3 Primary Care Provider: Joanne Zheng Referrals: Joanne Zheng MD [Primary Care Provider] - 1 Week if not improving Leonard Ledezma MD [STAFF PHYSICIAN] - As Needed Activity Restrictions/Additional Instructions: Ice to the elbow. To decrease pain and swelling. Do not lean on her elbows. If it returns and needs reevaluated. If it is red, hot or you develop a fever and needs to be evaluated make sure is not infected. Motrin for pain and swelling. If not improving follow-up with one of the local orthopedic doctors. Dr. Leonard Ledezma is environmental communications specialist today. Disposition Disposition: Home, Self Care
[2021-08-18] MEDS: Lidocaine/Epi/Tetracaine 50 ML 1 APPLIC TOPICAL (14:03)
[2021-08-18 15:19] VITALS: BP 120/77
== END 2021-08-18 15:19 | disposition home or self-care (01) ==
PROVIDERS: Emergency Provider Emergency Medicine; PCP Family Medicine; Visit Provider Emergency Medicine
DX: M70.31 Other bursitis of elbow, right elbow (principal); I48.0 Paroxysmal atrial fibrillation; I10 Essential (primary) hypertension; E78.5 Hyperlipidemia, unspecified; F32.A Depression, unspecified; E66.9 Obesity, unspecified; Z79.82 Long term (current) use of aspirin; Z79.01 Long term (current) use of anticoagulants; Z79.899 Other long term (current) drug therapy; Z68.36 Body mass index [BMI] 36.0-36.9, adult
CPT/HCPCS: 20605; 99282

== ENCOUNTER → 2021-11-09 | Outpatient (CLI) | payer OTHER, SELFPAY ==
--- NOTE | 2021-11-09 14:25 | RAD_ITS ---
EXAM: XR RIGHT ELBOW COMPLETE, 3 OR MORE VIEWS CLINICAL INDICATION: TENDONITIS TECHNIQUE: Frontal, lateral and oblique views of the right elbow. This report was created using [employer] report generation technology. COMPARISON: None. FINDINGS: BONES/JOINTS: Unremarkable. There is no displacement of the anterior or posterior fat pads. No acute fracture. No subluxation. Normal alignment. Preservation of the joint space. No destructive or sclerotic lesions. SOFT TISSUES: Unremarkable. No soft tissue swelling or gas. No radiopaque foreign body. RAD/Elbow min 3 Views IMPRESSION: Negative right elbow. Electronically Signed: Berto Garnica MD at 7:44 EDT ,
== END | disposition home or self-care (01) ==
LOC: MTRAD 14:22
PROVIDERS: PCP Family Medicine; Referring Provider Family Medicine; Visit Provider Family Medicine
DX: M77.8 Other enthesopathies, not elsewhere classified (principal)
CPT/HCPCS: 73080

== ENCOUNTER 2022-01-06 16:00 | Outpatient (RCR) | payer OTHER, SELFPAY ==
--- NOTE | 2021-11-24 12:03 | HP.PTEVAL_ITS ---
Patient's Visit Information TERRY ORTIZ is a 61 year old M referred to Physical Therapy by Dr. Joanne Zheng MD with a diagnosis of R elbow tendonitis. Date of Evaluation: 11/20/21 Physical Therapist: Les Ramirez DPT - Visit Plan Frequency: 2x /Week Duration: 6 Weeks Plan: Start with manual (light) and US to lateral elbow. Add in light stretching and once pain had reduced add in light stress to lateral tendons. - Subjective Pt. is here today for his initial evaluation with diagnosis of R elbow tendonitis. Pt. works in maintenance at [employer]. He reports a few months ago he was working fixing some pipping that was very hard to loosen and in an awkward positioning. He was doing this holding a large 4 foot plumbers wrench for ~45 minutes. He reports no mech of injury, but when he went the the break room after he noticed some increased swelling that got very large with in a few minutes. He did go to [facility] who tried to drain it, but noting was drained. He reports having some large bruising down his forearm over the next week or so. He has continues to work, but reports having to favor his RUE due to high levels of pain. He is R hand dominant. Pt. reports gripping any thing is painful and has basically had to rely on his L UE for most activities. He denies N/T, no more brusing and has noticing marked weakness. He is hopeful to reduce symptoms in order to complete all work and recreational activities without limitations. - Pain R lateral elbow Pain Intensity (Out of 10): 5 Pain Intensity Range: 3, 9 - Objective POSTURE: Pt. has arm in natural positioning, no guarding noted. PALPATION: Pt. is very tender at lateral epicondyle, none at olecranon, , no medial elbow pain. No triceps or biceps (distally) pain noted. NEURO: Pt. has normal sensation and normal DTR of BUEs. ROM: R elbow: full motion without increase in symptoms. R wrist: flexion min loss increase NW, extension full motion no issues. Slight increase in symptoms with full supination as well. MMT: Cad Developer strength: R 51#, L 117#. B shoulder and elbow: 5/5 throughout without increase in symptoms. Wrist: R: flexion 5/5 NE, ext 4/5 increase NW, supine 4/5 increase NW, pro 4/5 increase NW. - Balance/Special Test Scores Quick DASH Score: 50.0000 - Goals Goal 1:: LTG: Pt. to be I with HEP. Goal Time Frame: 4-6 Weeks Goal 2:: STG: Pt. to have 0-2/10 pain in R lateral wrist at rest. Goal Time Frame: 2-4 Weeks Goal 3:: STG: Pt. to sleep throughout the night without increase in symptoms. Goal Time Frame: 2 Weeks Goal 4:: LTG: Pt. to have full ROM of R wrist/elbow without increase in symptoms. Goal Time Frame: 4-6 Weeks Goal 5:: LTG: Pt. to have full strength of R wrist symmetrical to L side without increase in symptoms. Goal Time Frame: 4-6 Weeks Goal 6:: LTG: Pt. to complete all work related activities with 0-2/10 pain in his R elbow. Goal Time Frame: 4-6 Weeks - Rehabilitation Potential Physical Therapy Diagnosis: Pt. has signs and symptoms consistent with R elbow tendonitis. Pt. due to having increased bruising I start to think of some sort of tear, but having no barry mech of injury does not match well. He has had increased pain with stress to his wrist and finger extensors as well. I will treat him for lateral epicondylitis which he has + signs for, but I can not fully rule out some tearing to these structures as well. Rehabilitation Potential: Good - Anticipated Interventions Patient/Client Instruction: Educate patient on: Condition, Plan of Care For the Purpose of:: To facilitate caregiver knowledge, To improve self management, To prevent re-injury, To improve ability to perform tasks related to life management, To improve tolerance to ADL's Therapeutic Exercise to Include: Strength training, Power training, Endurance training, Body mechanics, Passive ROM, Active ROM, Scapular Strength/Stabilizat ion For the Purpose of:: To decrease pain, To decrease swelling/inflammation, To increase ROM, To improve nutrient delivery to tissue, To increase oxygenation perfusion, To improve muscle performance and motor function, To improve ability to perform ADL's, To decrease level of supervision to perform tasks Manual Therapy Techniques to Include: Mobilization, Functional dry needling, Soft tissue mobilization For the Purpose of:: To decrease pain, To decrease swelling/inflammation, To increase ROM, To improve nutrient delivery to tissue, To increase oxygenation perfusion, To improve muscle performance and motor function, To improve ability to perform ADL's Cryotherapy (ice pack, ice massage): Yes Ultrasound (thermal/non thermal): Yes For the Purpose of:: To decrease pain, To decrease swelling/inflammation, To increase ROM, To improve nutrient delivery to tissue, To increase oxygenation perfusion, To improve muscle performance and motor function Thank you for the opportunity to evaluate your patient. For Medicare and Medicare HMO plans, please review the plan of care and approve it. It will need to be FAXED BACK to us at [phone] for Medicare purposes. For Medicare only, by signing this I certify the plan of care. Please let me know if there are questions or concerns regarding this plan of care. Physician Signature: Date:
--- NOTE | 2021-12-23 16:02 | HP.PTREVAL ---
Dr. Joanne Zheng MD, It has been my pleasure to treat TERRY ORTIZ over the last 8 visits for R elbow tendonitis. Please see the progress note below for an update on the physical therapy plan of care! Subjective: Pt. reports overall improving, but not as quickly as he would like. He had an initial improvement, but feels like recently there has been less. He is wearing his brace at work which helps and is stretching, which does reduce his symptoms. he does continue to report high levels of pain, mainly at his R lateral epicondyle and slightly more lateral. Objective/Function: ROM: he has good ROM throughout his elbow and wrist, mild increase in symptoms with end range elbow flexion, and pulling at lateral elbow with wrist flexion. PALPATION: He continues to be very tender at lateral epicondyle and lateral to olecranon process. He continues to have increased edema in this same region as well. No much pain with palpation of olecranon process it self. He does continue to have pain along Extensor carpi ulnaris and extensor digitorum origins, seems to be more like ECU though. He has had some reduction in symptoms, but still painful. I am still curious with amount of initial bruising if there was not a some tearing of the above musculature. Plan Plan: I want to slowly introduce some light eccentrics as tolerated. He is to continue with icing and DFM at home. He is to continue with strethcing as well. Add in some light shoulder strengthening as well. Balance/Gait/Functional tests - Balance/Special Test Scores Quick DASH Score: 50.0000 Goals Goal 1:: LTG: Pt. to be I with HEP. Goal Time Frame: 4-6 Weeks Goal Progress: Progressing Goal 2:: STG: Pt. to have 0-2/10 pain in R lateral wrist at rest. Goal Time Frame: 2-4 Weeks Goal Progress: Progressing Goal 3:: STG: Pt. to sleep throughout the night without increase in symptoms. Goal Time Frame: 2 Weeks Goal Progress: Not Progressing Goal 4:: LTG: Pt. to have full ROM of R wrist/elbow without increase in symptoms. Goal Time Frame: 4-6 Weeks Goal Progress: Progressing Goal 5:: LTG: Pt. to have full strength of R wrist symmetrical to L side without increase in symptoms. Goal Time Frame: 4-6 Weeks Goal Progress: Progressing Goal 6:: LTG: Pt. to complete all work related activities with 0-2/10 pain in his R elbow. Goal Time Frame: 4-6 Weeks Goal Progress: Not Progressing Anticipated Interventions Patient/Client Instruction: Educate patient on: Condition, Plan of Care For the Purpose of:: To facilitate caregiver knowledge, To improve self management, To prevent re-injury, To improve ability to perform tasks related to life management, To improve tolerance to ADL's Therapeutic Exercise to Include: Strength training, Power training, Endurance training, Body mechanics, Passive ROM, Active ROM, Scapular Strength/Stabilization For the Purpose of:: To decrease pain, To decrease swelling/inflammation, To increase ROM, To improve nutrient delivery to tissue, To increase oxygenation perfusion, To improve muscle performance and motor function, To improve ability to perform ADL's, To decrease level of supervision to perform tasks Manual Therapy Techniques to Include: Mobilization, Functional dry needling, Soft tissue mobilization For the Purpose of:: To decrease pain, To decrease swelling/inflammation, To increase ROM, To improve nutrient delivery to tissue, To increase oxygenation perfusion, To improve muscle performance and motor function, To improve ability to perform ADL's Cryotherapy (ice pack, ice massage): Yes Ultrasound (thermal/non thermal): Yes For the Purpose of:: To decrease pain, To decrease swelling/inflammation, To increase ROM, To improve nutrient delivery to tissue, To increase oxygenation perfusion, To improve muscle performance and motor function Please do not hesitate to contact me at [phone] by phone or if you have questions or concerns regarding this new plan of care! Sincerely, Les Ramirez DPT
== END 2022-01-06 19:00 | disposition home or self-care (01) ==
LOC: PT 16:00
PROVIDERS: PCP Family Medicine; Referring Provider Family Medicine; Visit Provider Family Medicine
DX: M77.8 Other enthesopathies, not elsewhere classified (principal)
CPT/HCPCS: 97035; 97110; 97140; 97161; 97164

== ENCOUNTER → 2022-01-13 | Outpatient (CLI) | payer OTHER, SELFPAY | END | disposition home or self-care (01) | LOC: LABSPEC 11:58 | PROVIDERS: PCP Family Medicine; Referring Provider Physician Assistant; Visit Provider Physician Assistant | DX: R53.83 Other fatigue (principal) | CPT/HCPCS: 87635; U0003; U0005 ==

== ENCOUNTER → 2022-06-18 | Outpatient (CLI) | payer OTHER, SELFPAY ==
[2022-06-18 13:29] LABS: Absolute Lymphocyte Count 1.29 X10^3/uL (0.83-4.51); Absolute Neutrophil Count 4.5 X10^3/uL (2.0-7.7); Basophil# 0.06 X10^3/uL; Basophil% 0.9 % (0-1); Eosinophil# 0.21 X10^3/uL; Eosinophils% 3.1 % (0-5); Hematocrit 37.3 % (40-54); Hemoglobin 12.7 g/dL (13.0-16.5); Lymphocyte # 1.29 X10^3/ul (0.83-4.51); Lymphocyte % 18.9 % (19-41); Mean Corpuscular Hgb 30.2 pg (27.0-32.0); Mean Corpuscular Volume 88.6 fL (80-94); Mean Platelet Vol. 11.2 fl (6.2-12.0); Monocyte# 0.69 X10^3/uL; Monocyte% 10.1 % (0-10); NRBC Flagged by Analyzer 0 % (0-5); Neutrophil # 4.54 X10^3/uL (2.7-7.7); Neutrophil % 66.4 % (47-70); Platelet Count 173 K/mm3 (150-450); RBC Distribution Width SD 38.8 fl (35.1-43.9); Red Blood Count 4.21 M/mm3 (4.6-6.2); White Blood Count 6.8 K/mm3 (4.4-11.0)
[2022-06-18 13:50] LABS: ALB/GLOB Ratio 1.1 RATIO (0.9-2.4); AST(SGOT) 20 U/L (15-37); Alanine Aminotransfer ALT/SGPT 34 U/L (16-61); Albumin, Serum 3.9 g/dL (3.2-5.0); Alkaline Phosphatase 65 U/L (45-117); Anion Gap 9 (5-15); BUN 17 mg/dL (7-18); Calcium,Total 8.8 mg/dL (8.5-10.1); Chloride 105 mmol/L (98-107); Creatinine, Serum 1.21 mg/dL (0.70-1.30); EST Glomerular Filtration Rate 65 mL/min (>60); Est Glom Filt Rate - Afr Amer 79 mL/min (>60); Globulin 3.4 g/dL (2.2-4.2); Glucose 94 mg/dL (74-106); PSA,Total - Annual Screen 1.22 ng/mL (0.00-4.00); Potassium 3.7 mmol/L (3.5-5.1); Protein, Total 7.3 g/dL (6.4-8.2); Sodium Level 142 mmol/L (136-145); Thyroid Stim Hormone (TSH) 2.61 uIU/mL (0.358-3.74)
[2022-06-18 14:17] LABS: Hepatitis C Antibody Non-Reactive (Nonreactive)
== END | disposition home or self-care (01) ==
LOC: POLAB3 09:40
PROVIDERS: PCP Family Medicine; Visit Provider Family Medicine Geriatric Medicine
DX: Z13.89 Encounter for screening for other disorder (principal); I10 Essential (primary) hypertension; Z12.5 Encounter for screening for malignant neoplasm of prostate
CPT/HCPCS: 36415; 80053; 84153; 84443; 85025; 86803; G0103

== ENCOUNTER → 2022-06-22 | Outpatient (CLI) | payer OTHER, SELFPAY ==
--- NOTE | 2022-06-22 07:23 | US_ITS ---
STUDY: ABDOMINAL ULTRASOUND - RIGHT UPPER QUADRANT REASON FOR VISIT: Male, 61 years old . Right upper quadrant pain. TECHNIQUE: Ultrasound evaluation of the right upper quadrant was performed with real-time and static mir-scale imaging. TECHNICAL QUALITY: Adequate. COMPARISON: None. FINDINGS: Liver: The liver measures 17.3 cm. There is increased echogenicity consistent with fatty infiltration. The bile ducts are within normal limits. There is hepatic color flow. The direction of portal flow is hepatopetal. There is no demonstrated mass lesion. Gallbladder: The patient is status post cholecystectomy. Common Bile Duct (C.B.D.): The common bile duct measures 3.1 mm. Pancreas: There is nonvisualization of the pancreas due to overlying bowel gas. Right Kidney: Normal size of the right kidney. The right kidney measures 11.3 cm x 6.7 cm x 6.1 cm. Normal renal cortex. The right cortex measures 2.1 cm. There is no demonstrated renal mass or cyst. There is no right hydronephrosis. US/Abdomen Limited IMPRESSION: Mild degree of diffuse fatty infiltration of the liver. The patient is status post cholecystectomy. Electronically Signed: Wilfrid Garcia MD at 10:34 EST ,
--- NOTE | 2022-06-22 07:50 | RAD_ITS ---
EXAM: XR ABDOMEN, 2 VIEWS CLINICAL INDICATION: ABD PAIN ABD PAIN TECHNIQUE: Frontal view of the abdomen/pelvis with upright view of the abdomen. This report was created using [employer] technology. COMPARISON: None. FINDINGS: LOWER THORAX: No acute pathology. INTRAPERITONEAL SPACE: No free air. GASTROINTESTINAL TRACT: There is gaseous distention of some small bowel loops in the left side of the abdomen. There is no paucity of gas in the colon and there is no demonstrated stairstep pattern on erect view. Obstruction is thought to be unlikely. ORGANS: There are surgical clips overlying the right upper quadrant of the abdomen, consistent with prior cholecystectomy. No organomegaly. No abnormal calcifications. BONES/JOINTS: There are multilevel degenerative changes in the visualized spine. SOFT TISSUES: No acute pathology. RAD/[employer]d Inc Decub and/or Erect IMPRESSION: Gaseous distention of some small bowel loops with a nonspecific nonobstructive pattern. Ileus is not excluded. Electronically Signed: Riley Patel MD at 7:40 EST Reading Location ID and State: [facility] / [place] , Service support ,
== END | disposition home or self-care (01) ==
LOC: US 07:21
PROVIDERS: PCP Family Medicine; Referring Provider Family Medicine Geriatric Medicine; Visit Provider Family Medicine Geriatric Medicine
DX: K76.0 Fatty (change of) liver, not elsewhere classified (principal); R14.0 Abdominal distension (gaseous); R10.9 Unspecified abdominal pain
CPT/HCPCS: 74019; 76705

== ENCOUNTER → 2022-06-30 | Outpatient (CLI) | payer OTHER, SELFPAY | END | disposition home or self-care (01) | LOC: PSN 12:16 | PROVIDERS: PCP Family Medicine Geriatric Medicine; Referring Provider Internal Medicine Cardiovascular Disease; Visit Provider Internal Medicine Cardiovascular Disease | DX: I48.0 Paroxysmal atrial fibrillation (principal); R55 Syncope and collapse; R42 Dizziness and giddiness | CPT/HCPCS: 93225; 93226 ==

== ENCOUNTER 2022-07-07 07:47 | Day surgery (SDC) | payer OTHER, SELFPAY ==
[2022-07-07] VITALS (7 sets, daily range): BP systolic 102–139; BP diastolic 73–81; PULSE 68–80; RESP 16–185; TEMP 36.1–36.7; O2SAT 97–98; BMI 36.9
[2022-07-07] MEDS: Lactated Ringers 1,000 ML 15 ML IV (08:25)
--- NOTE | 2022-07-07 08:35 | HP.PCM_ITS ---
HPI - General General Date of Admission: 07/07/22 Date of Service: 07/07/22 Chief Complaint: Screening colonoscopy HPI Narrative TERRY ORTIZ, is a 61 M who presents for screening colonoscopy. He has a past medical history of hyperlipidemia, hypertension, obesity who presents for a colonoscopic evaluation to screen for polyps and/or colon cancer. He does not have any abdominal pain. He is not have any fevers. He is not having any chest pain or shortness of breath. He did have a colonoscopy approximately 10 years ago and had some benign polyps that were removed. He was told to come back and have a colonoscopy in 10 years. All 16 review of systems are negative except as per body mentioned HPI. FOR[facility]LY [facility] Medical History (Updated 06/30/22 @ 12:20 by Claribel Briseno) Anxiety BiPAP (biphasic positive airway pressure) dependence Cardiology follow-up encounter Depression Depression Easy bruising Essential (primary) hypertension Heartburn History of abnormal breathing pattern History of atrial fibrillation History of cardiac monitoring History of echocardiogram History of IBS History of stress test Hx of renal calculi Hyperlipidemia Hypertension Non-smoker KYE (obstructive sleep apnea) Paroxysmal atrial fibrillation Wears glasses Home Medications loratadine 10 mg tablet (Allergy Relief (loratadine)) 10 mg PO DAILY 12/11/18 [History Last Taken 07/07/22 05:00] aspirin 81 mg tablet,delayed release (Adult Aspirin Regimen) 81 mg PO DAILY 12/13/18 [History Last Taken 09/30/19] bupropion HCl 150 mg tablet,12 hr sustained-release 150 mg PO BID 03/27/20 [History Last Taken 07/07/22 05:00] losartan 100 mg tablet 100 mg PO DAILY This is a dose change #90 tabs 07/27/21 [Rx Last Taken 07/07/22 05:00] flecainide 100 mg tablet 100 mg PO Q12H #180 tabs 01/15/22 [Rx Last Taken 07/07/22 05:00] hydrochlorothiazide 25 mg tablet 25 mg PO DAILY #90 tabs 06/01/22 [Rx Last Taken Unknown] famotidine 40 mg tablet 40 mg PO DAILY 06/29/22 [History Last Taken 07/07/22 05:00] duloxetine 60 mg capsule,delayed release 60 mg PO DAILY 06/30/22 [History Last Taken 07/07/22 05:00] metoprolol succinate 25 mg tablet,extended release 24 hr 50 mg PO DAILY 06/30/22 [History Last Taken 07/07/22 05:00] Allergy/AdvReac Type Severity Reaction Status Date / Time lisinopril AdvReac cough Verified 07/07/22 08:20 Family History (Updated 06/29/22 @ 16:19 by Irma Islas) Grandfather Colon cancer Other Breast cancer Heart disease Surgical History History of colonoscopy History of left heart catheterization (12/07/13) Hx laparoscopic cholecystectomy Social History (Updated 06/29/22 @ 16:20 by Irma Islas) household members: spouse current occupational status: employed current occupation: [employer] Maintenance Smoking Status: Never smoker ROS Review of Systems ROS Unobtainable: other Constitutional Constitutional: Denies fatigue, fever(s), poor appetite, weight gain or weight loss ENT HEENT: Denies mouth lesions Cardiovascular Cardiovascular: Denies abdominal bloating, abdominal edema or abdominal pain Respiratory/Chest Respiratory/Chest: Denies change in mental status, change in phlegm color, chest congestion or chest tightness Gastrointestinal Gastrointestinal: Denies belching, bloating, change in bowel habits, change in stool character, chewing difficulty, coffee ground emesis, constipation, cramping, diarrhea, dyspepsia, dysphagia, early satiety, excessive flatus, fecal incontinence, heartburn, hematemesis, hematochezia, hemorrhoids, loose stools, melena, nausea, odynophagia, rectal bleeding, tenesmus, vomiting or weight changes Genitourinary Genitourinary: Denies abdominal discomfort, burning urination or itching Musculoskeletal Musculoskeletal: Reports as per HPI; Denies muscle weakness or myalgias Integumentary Integumentary: Denies jaundice Neurologic Neurologic: Denies lack of coordination or weakness Psychiatric Psychiatric: Denies confusion, depression, memory loss, mood swings, paranoia or suicidal ideation Endocrine Endocrinology: Denies systems reviewed and no addt'l complaints, except as documented Hematologic/Lymphatic Hematologic/Lymphatic: Denies anemia, easy bleeding, easy bruising or lymphadenopathy Allergic/Immunologic Allergic/Immunologic: Denies systems reviewed and no addt'l complaints, except as documented Vital Signs Vital Signs Vital Signs: 07/07/22 08:21 02/15/23 08:21 Temperature 98.1 F Temperature Source Temporal Pulse Rate 80 Respiratory Rate 16 Respiratory Pattern Normal Blood Pressure 139/78 H Blood Pressure Mean 98 Blood Pressure Source Monitor Blood Pressure Position Sitting Blood Pressure Location Left Arm Pulse Ox 98 Oxygen Delivery Method Room Air Weight Weight: 279 lb 15.793 oz Body Mass Index (BMI) 36.9 Physical Exam Const alert General Appearance: cooperative Orientation / Consciousness: oriented to person HEENT hearing grossly normal bilaterally Head and Scalp: normal to inspection Face and Sinus: face symmetric Nose: external nose normal Mouth: oral and palatal mucosa normal Eyes conjunctivae normal General Eye: normal appearance of both eyes Neck full ROM General: normal visual inspection Lymph Lymphatic: no lymphadenopathy noted Chest inspection of chest normal and palpation of chest normal Chest: symmetrical chest wall rise Resp normal respiratory effort Effort and Inspection: able to speak in complete sentences Cardio regular rate GI non-distended Percussion: normal to percussion Rectal Exam: deferred Neuro Speech: speech normal Gait (Neuro): normal gait Assessment & Plan Assessment/Plan (1) Encounter for screening for malignant neoplasm of colon: PLAN: He will undergo screening colonoscopy. He was explained alternatives, risk, benefits including not withstanding bleeding, infection, sepsis, perforation, need for discharge and . He will have an ASA of 3.
--- NOTE | 2022-07-07 09:03 | OP.COLON_ITS ---
Patient Name: Edgard Vaca Procedure Date: 07/07/2022 8:39 AM Date of : 1960 Age: 61 Procedure: Colonoscopy Indications: Screening for colorectal malignant neoplasm Providers: Scott Doherty DO Medicines: Monitored Anesthesia Care Patient Profile: This is a 61 year old male. Refer to note in patient chart for documentation of history and physical. Last Colonoscopy: 10 years ago. Complications: No immediate complications. Procedure: Pre-Anesthesia Assessment: - Prior to the procedure, a History and Physical was performed, and patient medications and allergies were reviewed. The patient is competent. The risks and benefits of the procedure and the sedation options and risks were discussed with the patient. All questions were answered and informed consent was obtained. Patient identification and proposed procedure were verified by the physician in the pre-procedure area. Mental Status Examination: alert and oriented. Airway Examination: normal oropharyngeal airway and neck mobility. Respiratory Examination: clear to auscultation. CV Examination: normal. Prophylactic Antibiotics: The patient does not require prophylactic antibiotics. Prior Anticoagulants: The patient has taken no previous anticoagulant or antiplatelet agents. ASA Grade Assessment: II - A patient with mild systemic disease. After reviewing the risks and benefits, the patient was deemed in satisfactory condition to undergo the procedure. The anesthesia plan was to use monitored anesthesia care (MAC). Immediately prior to administration of medications, the patient was re-assessed for adequacy to receive sedatives. The heart rate, respiratory rate, oxygen saturations, blood pressure, adequacy of pulmonary ventilation, and response to care were monitored throughout the procedure. The physical status of the patient was re-assessed after the procedure. After I obtained informed consent, the scope was passed under direct vision. Throughout the procedure, the patient's blood pressure, pulse, and oxygen saturations were monitored continuously. The pediatric colonoscope was introduced through the anus and advanced to the terminal ileum. The colonoscopy was performed without difficulty. The patient tolerated the procedure well. The quality of the bowel preparation was good. Scope In: 8:47:24 AM Scope Withdrawal Time 0 hours 7 minutes 18 seconds Scope Out: 8:56:53 AM Total Procedure Duration Time 0 hours 9 minutes 29 seconds Findings: The perianal and digital rectal examinations were normal. A few small-mouthed diverticula were found in the recto-sigmoid colon, sigmoid colon and cecum. The exam was otherwise without abnormality on direct and retroflexion views. Impression: - Diverticulosis in the recto-sigmoid colon, in the sigmoid colon and in the cecum. - The examination was otherwise normal on direct and retroflexion views. - No specimens collected. Recommendation: - Discharge patient to home. - Resume previous diet. - Continue present medications. - Repeat colonoscopy in 10 years for screening purposes. Procedure Code(s): --- Professional --- G0121, Colorectal cancer screening; colonoscopy on individual not meeting criteria for high risk CPT copyright 2017 [employer]. All rights reserved. The codes documented in this report are preliminary and upon global account director review may be revised to meet current compliance requirements. Scott Doherty DO 07/07/2022 9:03:15 AM This report has been signed electronically. Number of Addenda: 0 Note Initiated On: 07/07/2022 8:39 AM
--- NOTE | 2022-07-07 09:04 | OP.CCLET_ITS ---
07/07/2022 Benson Aceves MD [address] [place] [address] Re : Colonoscopy procedure for Edgard Vaca Dear Dr. Aceves This procedure was performed on Thursday, July 07, 2022. My impressions and recommendations are as follows: Impressions : - Diverticulosis in the recto-sigmoid colon, in the sigmoid colon and in the cecum. - The examination was otherwise normal on direct and retroflexion views. - No specimens collected. Recommendations : - Discharge patient to home. - Resume previous diet. - Continue present medications. - Repeat colonoscopy in 10 years for screening purposes. My findings are described in the full procedure note, which is enclosed. If I can be of further assistance, please feel free to contact me at . Sincerely, Scott Friend, 07/07/2022 9:03:15 AM This report has been signed electronically.
== END 2022-07-07 09:43 | disposition home or self-care (01) ==
LOC: EN 07:47 → AC 07:49
PROVIDERS: PCP Family Medicine Geriatric Medicine; Referring Provider Family Medicine Geriatric Medicine; Visit Provider Internal Medicine Gastroenterology
PROC: 0DJD8ZZ Inspection of Lower Intestinal Tract, Via Natural or Artificial Opening Endoscopic (ICD-10-PCS; CPT 45378; principal; 2022-07-07 08:55)
DX: Z12.11 Encounter for screening for malignant neoplasm of colon (principal); I48.0 Paroxysmal atrial fibrillation; K57.30 Diverticulosis of large intestine without perforation or abscess without bleeding; E78.5 Hyperlipidemia, unspecified; I10 Essential (primary) hypertension; Z79.82 Long term (current) use of aspirin; Z86.010 Personal history of colon polyps; G47.33 Obstructive sleep apnea (adult) (pediatric)
CPT/HCPCS: 45378; J7120

== ENCOUNTER → 2022-07-14 | Outpatient (CLI) | payer OTHER, SELFPAY ==
--- NOTE | 2022-07-14 08:01 | US_ITS ---
STUDY: ABDOMINAL ULTRASOUND - ELASTOGRAPHY REASON FOR VISIT: Male, 61 years old. Fatty infiltration of the liver. TECHNIQUE: Liver stiffness measurements were obtained on a [id number] 85 ultrasound machine using a CA 1-7 probe following the SRU guidelines. 3 measurements were obtained using a 2-D-SWE method. TheIQR/M was 18% suggesting a quality data set. TECHNICAL QUALITY: Adequate. COMPARISON: Comparison is made with prior study dated 06/22/2022. FINDINGS: Liver: Fatty infiltration of the liver. Median liver stiffness measured 9.9 kPa. US/Elastography Parenchyma/Organ IMPRESSION: Liver stiffness measures 9.9 kPa compatible with F2-F3 (Mild to moderate liver fibrosis) Metavir score. Electronically Signed: Wilfrid Garcia MD at 10:39 EST ,
== END | disposition home or self-care (01) ==
LOC: US 07:59
PROVIDERS: PCP Family Medicine Geriatric Medicine; Referring Provider Family Medicine Geriatric Medicine; Visit Provider Family Medicine Geriatric Medicine
DX: K76.0 Fatty (change of) liver, not elsewhere classified (principal)
CPT/HCPCS: 76981

== ENCOUNTER → 2022-10-27 | Outpatient (CLI) | payer OTHER, SELFPAY ==
--- NOTE | 2022-10-27 13:47 | RAD_ITS ---
INDICATION: LOW BACK PAIN LOW BACK PAIN SINCE LAST WEEK. NO INJURY. GOING DOWN TO LEFT FOOT. EXAMINATION/TECHNIQUE: X-RAY - XR Spine Lumbar Min 4 Views COMPARISON: None. FINDINGS: Vertebral bodies are normal height. No definite fracture demonstrated. No subluxation. Facet arthropathy at the lower levels. No paravertebral soft tissue mass identified. Surgical clips right upper abdomen cholecystectomy. RAD/L/S Spine Min 4 Views IMPRESSION: No evidence of fracture or subluxation. Facet arthropathy. Electronically Signed: Kadie Daley MD at 7:56 EDT ,
== END | disposition home or self-care (01) ==
LOC: RAD 13:36
PROVIDERS: PCP Family Medicine Geriatric Medicine; Referring Provider Family Medicine Geriatric Medicine; Visit Provider Family Medicine Geriatric Medicine
DX: M54.50 Low back pain, unspecified (principal)
CPT/HCPCS: 72110

== ENCOUNTER → 2022-12-22 | Outpatient (CLI) | payer OTHER, SELFPAY ==
--- NOTE | 2022-12-22 16:45 | MRI_ITS ---
EXAM: MR LUMBAR SPINE WITHOUT INTRAVENOUS CONTRAST CLINICAL INDICATION: L LUMBAR RADICULOPATHY TECHNIQUE: Multiplanar and multisequence MR images of the lumbar spine without intravenous contrast. COMPARISON: No relevant prior studies available. FINDINGS: VERTEBRAE: Unremarkable. Vertebral body heights are preserved. Normal vertebral bodies and posterior elements. Normal alignment. No spondylolisthesis. There is preservation of the normal lumbar lordosis. SPINAL CORD: Unremarkable. Normal position and signal intensity of the conus medullaris. The conus is at L1-2. SOFT TISSUES: Unremarkable. DISCS/SPINAL CANAL/NEURAL FORAMINA: L1-L2: Unremarkable. Normal disc height and morphology. Normal spinal canal and lateral recesses. Normal neuroforamina. L2-L3: Unremarkable. Normal disc height and morphology. Normal spinal canal and lateral recesses. Normal neuroforamina. L3-L4: Mild decreased disc height. Decreased T2 signal intensity. Annular disc bulge mildly flattening the ventral thecal sac without mitchell spinal stenosis. Mild bilateral neural foraminal stenosis, greater on the right. Mild ligamentum flavum hypertrophy contributes to neural foraminal and mild transverse spinal canal narrowing. L4-L5: Normal disc height but decreased T2 signal intensity. Annular disc bulge. Mild narrowing of the ventral thecal sac. The AP diameter of the canal is roughly 9.5 mm in the midline, slightly stenotic. Ligamentum flavum hypertrophy contributes to mild narrowing of the transverse diameter of the thecal sac and proximal neural foraminal stenosis. Mild left greater than right neural foraminal stenosis. L5-S1: Normal disc height and signal intensity. No significant bulge or protrusion. MRI/Spine Lumbar (Routine) IMPRESSION: Mild multilevel degenerative change most pronounced at L3-4 and L4-5. Electronically Signed: Ave Saldana MD at 9:37 EDT ,
== END | disposition home or self-care (01) ==
LOC: MRI 15:39
PROVIDERS: PCP Family Medicine Geriatric Medicine; Referring Provider Family Medicine Geriatric Medicine; Visit Provider Family Medicine Geriatric Medicine
DX: M54.50 Low back pain, unspecified (principal); M54.16 Radiculopathy, lumbar region
CPT/HCPCS: 72148

== ENCOUNTER → 2023-03-09 | Outpatient (CLI) | payer OTHER, SELFPAY ==
--- NOTE | 2023-03-09 07:40 | RAD_ITS ---
INDICATION: CERVICAL DISC DISEASE EXAMINATION/TECHNIQUE: X-RAY - XR Spine Cervical 2 or 3 Views COMPARISON: No relevant prior comparison study available FINDINGS: VERTEBRAE: Preserved vertebral body height. No fracture. No spondylolisthesis. There is multilevel endplate spondylosis. Preservation of the normal cervical lordosis. No significant facet arthropathy. DISCS: There is multilevel degenerative disc disease. NECK SOFT TISSUES: No prevertebral soft tissue widening. LUNG APICES: Clear. RAD/Cerv Spine 2 or 3 Views IMPRESSION: Multilevel degenerative disc disease. Electronically Signed: Kiera Knutson MD at 8:07 EDT ,
== END | disposition home or self-care (01) ==
LOC: RAD 07:39
PROVIDERS: PCP Family Medicine Geriatric Medicine; Referring Provider Family Medicine Geriatric Medicine; Visit Provider Family Medicine Geriatric Medicine
DX: M50.90 Cervical disc disorder, unspecified, unspecified cervical region (principal)
CPT/HCPCS: 72040

== ENCOUNTER → 2023-04-20 | Outpatient (CLI) | payer OTHER, SELFPAY | END | disposition home or self-care (01) | LOC: PSN 12:49 | PROVIDERS: PCP Family Medicine Geriatric Medicine; Referring Provider Family Medicine Geriatric Medicine; Visit Provider Family Medicine Geriatric Medicine | DX: R68.83 Chills (without fever) (principal) | CPT/HCPCS: 87635; 87804; 87807; C9803 ==

== ENCOUNTER → 2023-06-20 | Outpatient (CLI) | payer OTHER, SELFPAY ==
[2023-06-20 14:27] LABS: Absolute Lymphocyte Count 1.52 X10^3/uL (0.83-4.51); Basophil# 0.07 X10^3/uL; Basophil% 0.7 % (0-1); Eosinophil# 0.14 X10^3/uL; Eosinophils% 1.3 % (0-5); Hemoglobin 13.6 g/dL (13.0-16.5); Lymphocyte # 1.52 X10^3/ul (0.83-4.51); Lymphocyte % 14.3 % (19-41); Mean Corp Hgb Conc 34.9 g/dL (32-36); Mean Corpuscular Hgb 31.6 pg (27.0-32.0); Mean Corpuscular Volume 90.7 fL (80-94); Mean Platelet Vol. 10.3 fl (6.2-12.0); Monocyte% 7.5 % (0-10); NRBC Flagged by Analyzer 0 % (0-5); Neutrophil % 75.4 % (47-70); Platelet Count 207 K/mm3 (150-450); RBC Distribution Width CV 12.4 % (11.6-14.6); RBC Distribution Width SD 40.7 fl (35.1-43.9); White Blood Count 10.6 K/mm3 (4.4-11.0)
[2023-06-20 14:48] LABS: ALB/GLOB Ratio 1.1 RATIO (0.9-2.4); AST(SGOT) 18 U/L (15-37); Alanine Aminotransfer ALT/SGPT 36 U/L (16-61); Albumin, Serum 3.9 g/dL (3.2-5.0); Alkaline Phosphatase 68 U/L (45-117); Anion Gap 8 (5-15); BUN 24 mg/dL (7-18); Calcium,Total 9.2 mg/dL (8.5-10.1); Chloride 104 mmol/L (98-107); EST Glomerular Filtration Rate 51 mL/min (>60); Est Glom Filt Rate - Afr Amer 61 mL/min (>60); Globulin 3.6 g/dL (2.2-4.2); Glucose 124 mg/dL (74-106); PSA,Total - Annual Screen 1.58 ng/mL (0.00-4.00); Potassium 3.3 mmol/L (3.5-5.1); Protein, Total 7.5 g/dL (6.4-8.2); Sodium Level 138 mmol/L (136-145); Thyroid Stim Hormone (TSH) 4.45 uIU/mL (0.358-3.74)
== END | disposition home or self-care (01) ==
PROVIDERS: PCP Family Medicine Geriatric Medicine; Visit Provider Family Medicine Geriatric Medicine
DX: I10 Essential (primary) hypertension (principal); Z12.5 Encounter for screening for malignant neoplasm of prostate
CPT/HCPCS: 36415; 80053; 84153; 84443; 85025; G0103

== ENCOUNTER → 2023-07-15 | Outpatient (CLI) | payer OTHER, SELFPAY ==
[2023-07-15 11:03] LABS: Anion Gap 4 (5-15); BUN 24 mg/dL (7-18); BUN/Creat Ratio 19.8 RATIO (10-20); Chloride 109 mmol/L (98-107); Creatinine, Serum 1.21 mg/dL (0.70-1.30); EST Glomerular Filtration Rate 65 mL/min (>60); Est Glom Filt Rate - Afr Amer 79 mL/min (>60); Glucose 94 mg/dL (74-106); Potassium 3.8 mmol/L (3.5-5.1); Sodium Level 140 mmol/L (136-145); Thyroid Stim Hormone (TSH) 2.51 uIU/mL (0.358-3.74)
== END | disposition home or self-care (01) ==
LOC: POLAB3 09:12
PROVIDERS: PCP Family Medicine Geriatric Medicine; Visit Provider Family Medicine Geriatric Medicine
DX: I10 Essential (primary) hypertension (principal)
CPT/HCPCS: 36415; 80048; 84443

== ENCOUNTER → 2023-11-23 | Outpatient (CLI) | payer OTHER, SELFPAY ==
--- NOTE | 2023-11-23 15:04 | RAD_ITS ---
STUDY: X-RAY - LEFT KNEE REASON FOR EXAM: Male, 63 years old. Pain. TECHNIQUE: 4 views of the left knee. COMPARISON: None. FINDINGS: Normal visualized distal femur. Normal visualized proximal tibia and fibula. Normal proximal tibiofibular articulation. There is no demonstrated fracture. There is minimal degenerative arthrosis of the medial femorotibial compartment. Normal lateral femorotibial compartment. Normal patellofemoral articulation. There is a tiny joint effusion. The soft tissue structures are unremarkable. RAD/Knee 4 or More Views IMPRESSION: Minimal degenerative arthrosis of the medial femorotibial compartment. Tiny joint effusion. Electronically Signed: Osvaldo Mcgee MD at 16:02 EDT ,
--- NOTE | 2023-11-23 15:04 | RAD_ITS ---
STUDY: X-RAY - RIGHT KNEE REASON FOR EXAM: Male, 63 years old. Pain. TECHNIQUE: 4 views of the right knee. COMPARISON: None. FINDINGS: Normal visualized distal femur. Normal visualized proximal tibia and fibula. Normal proximal tibiofibular articulation. There is no demonstrated fracture. Normal medial femorotibial compartment. Normal lateral femorotibial compartment. Normal patellofemoral articulation. There is a small joint effusion. The soft tissue structures are unremarkable. RAD/Knee 4 or More Views IMPRESSION: Small joint effusion. No demonstrated fracture. Electronically Signed: Osvaldo Mcgee MD at 16:00 EDT ,
== END | disposition home or self-care (01) ==
PROVIDERS: PCP Family Medicine Geriatric Medicine; Referring Provider Orthopaedic Surgery; Visit Provider Orthopaedic Surgery
DX: M25.562 Pain in left knee (principal); M25.561 Pain in right knee
CPT/HCPCS: 73564

== ENCOUNTER → 2023-12-14 | Outpatient (CLI) | payer OTHER, SELFPAY ==
[2023-12-14 11:44] LABS: Absolute Lymphocyte Count 1.24 X10^3/uL (0.83-4.51); Absolute Neutrophil Count 5.7 X10^3/uL (2.0-7.7); Basophil# 0.06 X10^3/uL; Basophil% 0.7 % (0-1); Eosinophil# 0.24 X10^3/uL; Hematocrit 37.2 % (40-54); Hemoglobin 12.2 g/dL (13.0-16.5); Lymphocyte # 1.24 X10^3/ul (0.83-4.51); Lymphocyte % 15.5 % (19-41); Mean Corp Hgb Conc 32.8 g/dL (32-36); Mean Corpuscular Hgb 29.4 pg (27.0-32.0); Mean Corpuscular Volume 89.6 fL (80-94); Mean Platelet Vol. 10.8 fl (6.2-12.0); Monocyte# 0.74 X10^3/uL; Monocyte% 9.2 % (0-10); NRBC Flagged by Analyzer 0 % (0-5); Neutrophil # 5.66 X10^3/uL (2.7-7.7); Neutrophil % 70.7 % (47-70); Platelet Count 173 K/mm3 (150-450); RBC Distribution Width CV 11.8 % (11.6-14.6); RBC Distribution Width SD 38.1 fl (35.1-43.9); Red Blood Count 4.15 M/mm3 (4.6-6.2)
[2023-12-14 13:04] LABS: ALB/GLOB Ratio 1.1 RATIO (0.9-2.4); AST(SGOT) 24 U/L (15-37); Alanine Aminotransfer ALT/SGPT 36 U/L (16-61); Albumin, Serum 3.8 g/dL (3.2-5.0); Alkaline Phosphatase 67 U/L (45-117); Anion Gap 6 (5-15); BUN 22 mg/dL (7-18); BUN/Creat Ratio 16.7 RATIO (10-20); Calcium,Total 9.1 mg/dL (8.5-10.1); Chloride 108 mmol/L (98-107); Creatinine, Serum 1.32 mg/dL (0.70-1.30); EST Glomerular Filtration Rate 59 mL/min (>60); Est Glom Filt Rate - Afr Amer 71 mL/min (>60); Globulin 3.4 g/dL (2.2-4.2); Glucose 85 mg/dL (74-106); Potassium 4.2 mmol/L (3.5-5.1); Protein, Total 7.2 g/dL (6.4-8.2); Sodium Level 139 mmol/L (136-145)
== END | disposition home or self-care (01) ==
LOC: LAB 10:50
PROVIDERS: PCP Family Medicine Geriatric Medicine; Referring Provider Family Medicine Geriatric Medicine; Visit Provider Family Medicine Geriatric Medicine
DX: R53.83 Other fatigue (principal)
CPT/HCPCS: 36415; 80053; 84443; 85025

== ENCOUNTER → 2023-12-19 | Outpatient (CLI) | payer OTHER, SELFPAY | END | disposition home or self-care (01) | LOC: LAB 08:02 | PROVIDERS: PCP Family Medicine Geriatric Medicine; Referring Provider Family Medicine Geriatric Medicine; Visit Provider Family Medicine Geriatric Medicine | DX: D64.9 Anemia, unspecified (principal) | CPT/HCPCS: 82274 ==

== ENCOUNTER → 2024-07-27 | Outpatient (CLI) | payer OTHER, SELFPAY ==
--- NOTE | 2024-07-27 14:45 | CT_ITS ---
PROCEDURE: LIMITED CHEST CT CARDIAC ONLY REASON FOR EXAM: Family history of heart disease. Hypertension. Shortness of breath on exertion. TECHNIQUE: Chest CT without contrast. COMPARISON: None. FINDINGS: Hardware: None. Lymph nodes: No mediastinal hilar or axillary lymphadenopathy. Heart and Vasculature: Normal heart size. No pericardial effusion. Thoracic aorta and pulmonary arteries have normal contours; noncontrast technique limits evaluation. Coronary Artery Calcifications: Mild degree of coronary artery calcification. Lungs and Airways: Focal linear density at the right lung base suggestive of atelectasis and/or scarring. Pleura: No pleural effusion. No pneumothorax. Upper Abdomen: Visualized portions of the upper abdominal viscera are unremarkable. Bones: Bone windows are unremarkable. CT/Limited Chest CT Cardiac Only IMPRESSION: Mild coronary artery calcification. Linear atelectasis and/or scarring at the right lung base. One or more dose reduction techniques were used (e.g., Automated exposure contr ol, adjustment of the mA and/or kV according to patient size, use of iterative reconstruction technique). Reading Location: [id number]
--- NOTE | 2024-08-06 07:53 | CA.SCORE ---
Calcium Scoring Date of Study:: 07/27/24 Indications Indications: FH Coronary Calcium Scoring: High-resolution Computed Tomographic imaging of the chest was performed on [07/27/24 ], with particular attention paid to the coronary arteries. Images from the examination were analyzed for the presence and extent of coronary artery calcification , using coronary calcium quantification software. The patient tolerated the procedure well and there were no complications. The results of the coronary calcification analysis are provided below. Findings Coronary Artery Left Main (LM): 0 Left Anterior Descending (LAD): 32 Left Circumflex (LCX): 0 Right Coronary Artery (RCA): 0 Total Agatston Score: 32 Percentile Rankin%-50% Calcium Scoring Interpretation: Different methods to categorize the overall amount of coronary plaque. Overall amount CAC SIS Visual of coronary plaque P1 Mild -100 <2 1-2 vessels with mild amount of plaque P2 Moderate 101-300 3-4 1-2 vessels with moderate amount, 3 vessels with mild amount of plaque P3 Severe 301-999 5-7 3 vessels with moderate amount, 1 vessel with severe amount of plaque P4 Extensive >1000 >8 2-3 vessels with severe amount of plaque Calcium Score: Mild: 1-2 vessels w/mild amount of plaque Conclusion: Minimal atherosclerotic plaquing.
== END | disposition home or self-care (01) ==
LOC: CT 14:28
PROVIDERS: PCP Family Medicine Geriatric Medicine; Referring Provider Physician Assistant Medical; Visit Provider Physician Assistant Medical
DX: R07.9 Chest pain, unspecified (principal)
CPT/HCPCS: 75571; 76380

== ENCOUNTER → 2025-01-15 | Outpatient (CLI) | payer OTHER, SELFPAY | END | disposition home or self-care (01) | LOC: SL 11:27 | PROVIDERS: PCP Family Medicine; Visit Provider Nurse Practitioner Family | DX: Z00.00 Encounter for general adult medical examination without abnormal findings (principal) ==

== ENCOUNTER → 2025-04-01 | Outpatient (CLI) | payer OTHER, SELFPAY ==
--- NOTE | 2025-04-01 12:24 | RAD_ITS ---
PROCEDURE: CERV SPINE 2 OR 3 VIEWS 04/01/2025 REASON FOR EXAM: NECK PAIN TECHNIQUE: Procedure Code: RADSPCL Modality: DX Procedure: CERV SPINE 2 OR 3 VIEWS FINDINGS: No evidence of acute fracture or dislocation. Mild degenerative changes of the visualized spine. Vertebral body heights are maintained. Normal alignment. RAD/Cerv Spine 2 or 3 Views IMPRESSION: Spondylosis. Reading Location: [id number]
== END | disposition home or self-care (01) ==
LOC: RAD 12:23
PROVIDERS: PCP Family Medicine; Referring Provider Anesthesiology Pain Medicine; Visit Provider Anesthesiology Pain Medicine
DX: M54.2 Cervicalgia (principal)
CPT/HCPCS: 72040

== ENCOUNTER → 2025-04-12 | Outpatient (CLI) | payer OTHER, SELFPAY ==
--- NOTE | 2025-04-12 15:30 | MRI_ITS ---
PROCEDURE: SPINE CERVICAL (ROUTINE) 04/12/2025 REASON FOR EXAM: RADICULOPATHY TECHNIQUE: Procedure Code: MRISPC Modality: MR Procedure: SPINE CERVICAL (ROUTINE) Multiplanar and multisequence images were obtained without IV contrast administration. FINDINGS: Vertebrae: Cervical vertebral body heights are preserved. Bone marrow signal is unremarkable. Alignment: Normal. No spondylolisthesis. Spinal Cord: Cervical spinal cord is of normal size and signal intensities. Structures at the foramen magnum are unremarkable. C2-3: Mild right foramina stenosis. No significant foraminal or canal stenosis. C3-4: Disc osteophyte complex. A 2 mm central disc protrusion. Uncovertebral hypertrophy. Facet joints arthropathy. Severe bilateral foramina stenosis. Mild canal stenosis. C4-5: Disc osteophyte complex. Uncovertebral hypertrophy. Facet joint arthropathy. Severe bilateral foramina stenosis. Moderate canal stenosis. C5-6: Disc osteophyte complex. Uncovertebral hypertrophy. Facet joints arthropathy. Severe bilateral foramina stenosis. Moderate canal stenosis. C6-7: Disc osteophyte complex. Uncovertebral hypertrophy. Facet joints arthropathy. Severe bilateral foramina stenosis. Moderate canal stenosis. . C7-T1: Uncovertebral hypertrophy. Disc osteophyte complex. Severe left and mild right foramina stenosis. Mild canal stenosis. MRI/Spine Cervical (Routine) IMPRESSION: Degenerate changes predominantly for moderate canal stenosis and severe bilater al foramina stenosis at C4-C5, C5-C6 and C6-C7. Reading Location: [facility]
== END | disposition home or self-care (01) ==
LOC: MRI 14:59
PROVIDERS: PCP Family Medicine; Referring Provider Anesthesiology Pain Medicine; Visit Provider Anesthesiology Pain Medicine
DX: M54.12 Radiculopathy, cervical region (principal)
CPT/HCPCS: 72141

== ENCOUNTER → 2025-05-13 | Outpatient (CLI) | payer OTHER, SELFPAY ==
--- NOTE | 2025-05-13 12:00 | RAD_ITS ---
PROCEDURE: CERV SPINE 2 OR 3 VIEWS 05/13/2025 REASON FOR EXAM: PLEASE DO FLEX, EXT TECHNIQUE: Procedure Code: RADSPCL Modality: DX Procedure: CERV SPINE 2 OR 3 VIEWS COMPARISON: Cervical spine dated 04/01/2025. MRI cervical spine dated 04/12/2025. FINDINGS: Vertebrae: Normal in height. Multilevel spondylosis. Disc spaces: Narrowing of the C5-6 and C6-7 interspaces. Alignment: Good alignment. No signs of instability during flexion and extension. Good range of motion. Soft tissues: Unremarkable. Other: No other significant findings. RAD/Cerv Spine 2 or 3 Views IMPRESSION: No signs of cervical spine instability. Degenerative disc disease. Mild spondylosis. Reading Location: [place] [id number]
== END | disposition home or self-care (01) ==
LOC: RAD 11:56
PROVIDERS: PCP Family Medicine; Referring Provider Student in an Organized Health Care Education/Training Program; Visit Provider Student in an Organized Health Care Education/Training Program
DX: M54.2 Cervicalgia (principal)
CPT/HCPCS: 72040